=== PATIENT | female | born 1955 | race Caucasian/White ===

== ENCOUNTER 2019-03-25 17:06 | Inpatient (IN) | payer MEDICARE, OTHER ==
[~2019-03-25] VITALS: Ht 160 cm; Wt 83.9 kg
[~2019-03-25 17:06] MED LIST: ADV25050 INH; BENA10TA4 PO; BENZ-5 PO; BUPR-165 PO; CARV6.2579 PO; DOCU-144 PO; ISOS10TA2 PO; METF500T9 PO; MODA200T35 PO; NICO-544 TRANSDERM; OXYB10TA6 PO; PARO-2 PO; PHEN-716 PO; POLY17PO6 PO; TIOT18CA INH; TRAM50TA2 PO
[2019-03-25] MEDS ORDERED: ALBUTEROL 0.083% (NEB) 2.5 MG/3 ML AMP NEB STA (17:34)
[2019-03-25] MEDS ORDERED: IPRATROPIUM (NEB) 0.5 MG/2.5 ML AMP NEB STA (17:34)
[2019-03-25] MEDS ORDERED: DEXAMETHASONE 10 MG/ML 1 ML INJ IM STA (17:34)
[2019-03-25] MEDS ORDERED: SOD CHLORIDE 0.9% 1,000 ML IV STA (17:42)
[2019-03-25] MEDS ORDERED: METHYLPREDNISOLONE 125 MG INJ IV STA (17:42)
[2019-03-25] MEDS ORDERED: METHYLPREDNISOLONE 125 MG INJ ONE (17:47)
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
[2019-03-25] MEDS ORDERED: IPRATROPIUM (NEB) 0.5 MG/2.5 ML AMP ONE ×2 (18:04→19:21)
[2019-03-25] MEDS ORDERED: ALBUTEROL 0.5% (NEB) 2.5 MG/0.5 ML AMP ONE ×2 (18:05→19:21)
[2019-03-25] MEDS ORDERED: ALBUTEROL 0.083% (NEB) 2.5 MG/3 ML AMP INH STA (19:18)
[2019-03-25] MEDS ORDERED: IPRATROPIUM (NEB) 0.5 MG/2.5 ML AMP INH STA (19:18)
[2019-03-25] MEDS ORDERED: AZITHROMYCIN 500MG/NS (PMX) 250 ML IV STA (19:44)
[2019-03-25] MEDS ORDERED: CEFTRIAXONE 1 GM/50 ML (PMX) 50 ML IVPB STA (19:44)
[2019-03-25] MEDS ORDERED: CEFTRIAXONE 1 GM/50 ML (PMX) 50 ML IVPB ONE (19:59)
[2019-03-25] MEDS ORDERED: ACETAMINOPHEN 325 MG TAB PO PRN ×2 (20:00→20:30)
[2019-03-25] MEDS ORDERED: ONDANSETRON 4 MG INJ IV PRN ×2 (20:00→20:30)
[2019-03-25] MEDS ORDERED: AZITHROMYCIN 500MG/NS (PMX) 250 ML ONE (20:27)
[2019-03-25] MEDS ORDERED: NACL 0.9% 3 ML SYG IV SCH (20:30)
[2019-03-25] MEDS ORDERED: DOCUSATE SODIUM 100 MG CAP PO PRN (20:30)
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
[2019-03-25] MEDS ORDERED: FAMOTIDINE 20 MG TAB PO SCH (21:00)
[2019-03-25 21:40] VITALS: BP 148/72; PULSE 97; RESP 16
[2019-03-25] MEDS: ALBUTEROL/IPRATROPIUM (NEB) 3 ML AMP HHN SCH (21:52)
[2019-03-25] MEDS: METHYLPREDNISOLONE 40 MG INJ IV SCH (22:08)
[2019-03-25 22:10] VITALS: Ht 160 cm; Wt 83.9 kg
[2019-03-25] MEDS ORDERED: TEMA15CA PO (23:02)
[2019-03-25] MEDS ORDERED: GABA300C PO (23:05)
[2019-03-25] MEDS ORDERED: ALBUTEROL 0.083% (NEB) 2.5 MG/3 ML AMP HHN PRN (23:30)
[2019-03-25] MEDS ORDERED: GLUCOSE GEL 15 GRAM TUBE BUCCAL PRN (23:30)
[2019-03-25] MEDS ORDERED: NON-FORMULARY/PATIENT OWN MED (Temazepam* 15 MG) PO PRN (23:30)
[2019-03-25] MEDS ORDERED: DEXTROSE 50% 50 ML SYRINGE IV PRN ×2 (23:30)
[2019-03-25] MEDS ORDERED: GLUCAGON 1 MG INJ IM PRN (23:30)
[2019-03-25] MEDS ORDERED: GLUCOSE GEL 15 GRAM TUBE PO PRN ×2 (23:30)
[2019-03-26] MEDS: ZOLPIDEM 5 MG TAB PO PRN (00:25)
[2019-03-26] MEDS ORDERED: CARI350T29 PO (00:50)
[2019-03-26] MEDS ORDERED: BACL10TA PO (00:50)
[2019-03-26] MEDS ORDERED: OXYC40TA26 PO (00:50)
[2019-03-26] MEDS: ALBUTEROL/IPRATROPIUM (NEB) 3 ML AMP HHN SCH ×6 (01:05→19:49)
[2019-03-26] MEDS: ACCU-CHEK XX SCH (01:49)
[2019-03-26 02:29] VITALS: BP 129/78; PULSE 77; RESP 18
[2019-03-26] MEDS ORDERED: POTASSIUM CHLORIDE (SR) 20 MEQ TAB PO ONE (04:23)
[2019-03-26] MEDS ORDERED: PHENAZOPYRIDINE 100 MG TAB PO PRN (04:30)
[2019-03-26] MEDS: oxyCODONE (CR) 40 MG TAB [oxyCONTIN] PO SCH ×2 (05:45→08:30)
[2019-03-26] MEDS: METHYLPREDNISOLONE 40 MG INJ IV SCH ×3 (05:45→21:39)
[2019-03-26] MEDS: LEVOFLOXACIN 750 MG TABLET PO SCH (05:46)
[2019-03-26] MEDS: PANTOPRAZOLE (EC) 40 MG TAB PO SCH (05:46)
[2019-03-26 08:16] VITALS: BP 143/68; PULSE 77; RESP 18
[2019-03-26] MEDS: BACLOFEN 10 MG TAB PO SCH (08:29)
[2019-03-26] MEDS: OXYBUTYNIN (XL) 5 MG TAB PO SCH (08:29)
[2019-03-26] MEDS: GABAPENTIN 300 MG CAP PO SCH ×3 (08:29→21:39)
[2019-03-26] MEDS: POLYETHYLENE GLYCOL 17 GM PACKET PO SCH (08:29)
[2019-03-26] MEDS: DOCUSATE SODIUM 100 MG CAP PO SCH ×3 (08:30→21:39)
[2019-03-26] MEDS: CARISOPRODOL 350 MG TAB PO SCH ×2 (08:30→21:39)
[2019-03-26] MEDS: BUPROPION (SR) 150 MG TAB PO SCH ×2 (08:30→21:39)
[2019-03-26] MEDS: ISOSORBIDE DINITRATE 10 MG TAB PO SCH ×4 (08:31→21:39)
[2019-03-26] MEDS: NICOTINE (14 MG/24 HR) PATCH TRANSDERM SCH ×2 (08:32→08:49)
[2019-03-26] MEDS: ENOXAPARIN 40 MG/0.4 ML SYG SC SCH (08:35)
[2019-03-26] MEDS: INSULIN ASPART [NOVOLOG] 3 ML PEN SC SCH ×4 (08:48→21:00)
[2019-03-26] MEDS ORDERED: NON-FORMULARY/PATIENT OWN MED (Salmeterol Xinaf/Fluticasone* (Advair*) 1 INH) INH SCH (09:00)
--- NOTE | 2019-03-26 12:27 | PN ---
Date/Time of Note Date/Time of Note DATE: 03/26/19 TIME: 12:26 Assessment/Plan VTE Prophylaxis Risk score (from Nsg)>0 risk: 3 SCD applied (from Nsg): Yes Pharmacological prophylaxis: LMWH Lines/Catheters IV Catheter Type (from Nrsg): Saline Lock Assessment/Plan Hospital Course SUBJECTIVE: She still with wheezing. Having mild shortness of breath. On 3 L oxygen via nasal cannula. OBJECTIVE: Vital signs-see below PHYSICAL EXAM: Constitutional: Adequately built,not in acute distress. HEENT: Head atraumatic and normocephalic. Eyes: Extraocular muscles intact. Anicteric sclerae. Pupils equal bilaterally, reactive to light. NECK: Supple without lymph node. CHEST: Expiratory wheezing bilaterally. HEART: S1, S2. Regular rate and rhythm. ABDOMEN: Soft/non tender with no rebound tenderness. Bowel sounds were present. EXTREMITIES: No cyanosis, clubbing or edema. NEUROLOGIC: Alert and oriented x3. No focal deficit. No sensory deficit. PSYCHOSOCIAL: No signs of depression. INTEGUMENTARY: No open wounds. ASSESSMENT AND PLAN:64 yo w/copd,current every day smoker,dm neuropathy,anxiety, chronic back pain, here w/cough/sob... COPD exacerbation -Continue [id number] Rosalind, Brovana nebulization -Increase Solu-Medrol to 40 mg q. 8 -Supplemental oxygen Tracheobronchitis -Continue Levaquin. Add cough medications DM2 -With IV steroids, will start patient on NPH to be linked with steroid dose. -Continue basal/bolus regimen. Anxiety disorders -Continue home medications Overactive bladder -Continue home medications Tobacco abuse -Counseled on cessation. Provide nicotine patch Chronic Back pain -pain control Obesity with a BMI 32.8 -Weight reduction advised DVT prophylaxis: Lovenox Disposition: Continue current management. Await for clinical improvement. Assess for home oxygen requirement. Patient was seen in collaboration with Dr. Seo. Result Diagram: 03/25/19 1800 03/25/19 1800 Results 24hrs Laboratory Tests Test 03/25/19 18:00 03/25/19 20:14 03/26/19 04:53 03/26/19 08:21 White Blood Count 10.4 Red Blood Count 4.79 Hemoglobin 15.3 Hematocrit 44.9 Mean Corpuscular 93.7 Volume Mean Corpuscular 31.9 Hemoglobin Mean Corpuscular 34.4 Hemoglobin Concent Red Cell 12.2 Distribution Width Platelet Count 263 # Mean Platelet Volume 9.1 Neutrophils % 67.4 Lymphocytes % 21.1 Monocytes % 8.9 Eosinophils % 0.5 Basophils % 0.6 Nucleated Red Blood 0.0 Cells % Neutrophils # 7.0 Lymphocytes # 2.2 Monocytes # 0.9 Eosinophils # 0.1 Basophils # 0.1 Nucleated Red Blood 0.0 Cells # Sodium Level 140 Potassium Level 3.4 L Chloride Level 100 Carbon Dioxide Level 30 Anion Gap 10 Blood Urea Nitrogen 18 Creatinine 0.87 Est Glomerular > 60 Filtrat Rate mL/min Glucose Level 156 Calcium Level 9.8 Total Bilirubin 0.4 Direct Bilirubin 0.00 Indirect Bilirubin 0.4 Aspartate Amino 28 Transf (AST/SGOT) Alanine 25 Aminotransferase (AL T/SGPT) Alkaline Phosphatase 86 Troponin I < 0.012 Total Protein 8.0 Albumin 4.4 Globulin 3.60 H Albumin/Globulin 1.22 Ratio POC Venous Lactate 1.3 Hemoglobin A1c 5.4 Triglycerides Level 62 Cholesterol Level 141 LDL Cholesterol, 86 Calculated HDL Cholesterol 43 Cholesterol/HDL 3.2 Ratio Thyroid Stimulating 0.119 L Hormone (TSH) Free Thyroxine Index 3.51 Thyroxine (T4) 8.6 Triiodothyronine 40.8 H (T3) Uptake Bedside Glucose 199 Exam/Review of Systems Exam Vitals Vital Signs Date Temp Pulse Resp B/P (MAP) Pulse Ox O2 O2 Flow FiO2 Time Delivery Rate 03/26/19 78 20 95 Nasal 3.0 11:59 Cannula 03/26/19 98.3 143/68 08:16 (93) 03/25/19 21 18:07 Results Results 24hrs Laboratory Tests Test 03/25/19 18:00 03/25/19 20:14 03/26/19 04:53 03/26/19 08:21 White Blood Count 10.4 Red Blood Count 4.79 Hemoglobin 15.3 Hematocrit 44.9 Mean Corpuscular 93.7 Volume Mean Corpuscular 31.9 Hemoglobin Mean Corpuscular 34.4 Hemoglobin Concent Red Cell 12.2 Distribution Width Platelet Count 263 # Mean Platelet Volume 9.1 Neutrophils % 67.4 Lymphocytes % 21.1 Monocytes % 8.9 Eosinophils % 0.5 Basophils % 0.6 Nucleated Red Blood 0.0 Cells % Neutrophils # 7.0 Lymphocytes # 2.2 Monocytes # 0.9 Eosinophils # 0.1 Basophils # 0.1 Nucleated Red Blood 0.0 Cells # Sodium Level 140 Potassium Level 3.4 L Chloride Level 100 Carbon Dioxide Level 30 Anion Gap 10 Blood Urea Nitrogen 18 Creatinine 0.87 Est Glomerular > 60 Filtrat Rate mL/min Glucose Level 156 Calcium Level 9.8 Total Bilirubin 0.4 Direct Bilirubin 0.00 Indirect Bilirubin 0.4 Aspartate Amino 28 Transf (AST/SGOT) Alanine 25 Aminotransferase (AL T/SGPT) Alkaline Phosphatase 86 Troponin I < 0.012 Total Protein 8.0 Albumin 4.4 Globulin 3.60 H Albumin/Globulin 1.22 Ratio POC Venous Lactate 1.3 Hemoglobin A1c 5.4 Triglycerides Level 62 Cholesterol Level 141 LDL Cholesterol, 86 Calculated HDL Cholesterol 43 Cholesterol/HDL 3.2 Ratio Thyroid Stimulating 0.119 L Hormone (TSH) Free Thyroxine Index 3.51 Thyroxine (T4) 8.6 Triiodothyronine 40.8 H (T3) Uptake Bedside Glucose 199 Medications Medication Current Medications Ondansetron HCl (Zofran Inj) 4 mg BRIDGE ORDER PRN IV NAUSEA/VOMITING; Start 03/25/19 at 20:00; Stop 03/26/19 at 19:59 Acetaminophen (Tylenol Tab) 650 mg ER BRIDGE PRN PO .MILD PAIN 1-3 OR TEMP; Start 03/25/19 at 20:00; Stop 03/26/19 at 19:59 IV Flush (NS 3 ml) 3 ml PER PROTOCOL IV ; Start 03/25/19 at 20:30 Ondansetron HCl (Zofran Inj) 4 mg Q6H PRN IV NAUSEA/VOMITING; Start 03/25/19 at 20:30 Acetaminophen (Tylenol Tab) 650 mg Q6H PRN PO .PAIN 1-3 OR TEMP Last administered on 03/26/19at 00:25; Admin Dose 650 MG; Start 03/25/19 at 20:30 Docusate Sodium (Colace) 100 mg Q12H PRN PO .CONSTIPATION; Start 03/25/19 at 20:30 Bisacodyl (Dulcolax) 5 mg DAILY PRN PO .CONSTIPATION; Start 03/25/19 at 20:30 Enoxaparin Sodium (Lovenox) 40 mg DAILY SC Last administered on 03/26/19at 08:35; Admin Dose 40 MG; Start 03/26/19 at 09:00 Albuterol/ Ipratropium (Duoneb) 3 ml Q4H RESP THERAPY HHN Last administered on 03/26/19at 11:58; Admin Dose 3 ML; Start 03/25/19 at 21:00 Methylprednisolone Sodium Succinate (Solu-Medrol) 30 mg Q8 IV Last administered on 03/26/19at 05:45; Admin Dose 30 MG; Start 03/25/19 at 22:00 Levofloxacin (Levaquin) 750 mg DAILY@06 PO Last administered on 03/26/19at 05:46; Admin Dose 750 MG; Start 03/26/19 at 06:00; Stop 03/31/19 at 05:59 Gabapentin (Neurontin) 300 mg TID PO Last administered on 03/26/19at 08:29; Admin Dose 300 MG; Start 03/26/19 at 09:00 Nicotine (Nicoderm 14 Mg/ 24hr) 1 patch DAILY TRANSDERM Last administered on 03/26/19at 08:49; Admin Dose 1 PATCH; Start 03/26/19 at 09:00 Albuterol (Proventil 0.083% (Neb)) 2.5 mg Q2H RESP THERAPY PRN HHN SHORTNESS OF BREATH; Start 03/25/19 at 23:30 Diagnostic Test (Pha) (Accu-Chek) 1 ea 02 XX ; Start 03/26/19 at 02:00 Insulin Aspart (Novolog Insulin Pen) NOVOLOG *MILD* ALGORITHM WITH MEALS BEDTIME SC Last administered on 03/26/19at 08:48; Admin Dose 2 UNIT; Start 03/26/19 at 08:00 Miscellaneous Information 1 ea NOTE XX ; Start 03/25/19 at 23:30 Glucose (Glutose) 15 gm Q15M PRN PO DECREASED GLUCOSE; Start 03/25/19 at 23:30 Glucose (Glutose) 22.5 gm Q15M PRN PO DECREASED GLUCOSE; Start 03/25/19 at 23:30 Dextrose (D50w Syringe) 25 ml Q15M PRN IV DECREASED GLUCOSE; Start 03/25/19 at 23:30 Dextrose (D50w Syringe) 50 ml Q15M PRN IV DECREASED GLUCOSE; Start 03/25/19 at 23:30 Glucagon (Glucagen) 1 mg Q15M PRN IM DECREASED GLUCOSE; Start 03/25/19 at 23:30 Glucose (Glutose) 15 gm Q15M PRN BUCCAL DECREASED GLUCOSE; Start 03/25/19 at 23:30 Zolpidem Tartrate (Ambien) 5 mg HS PRN PO INSOMNIA Last administered on 03/26/19 00:25; Admin Dose 5 MG; Start 03/25/19 at 23:30 Baclofen (Lioresal) 10 mg DAILY PO Last administered on 03/26/19 08:29; Admin Dose 10 MG; Start 03/26/19 at 09:00 Bupropion HCl (Wellbutrin Sr) 150 mg BID PO Last administered on 03/26/19 08:30; Admin Dose 150 MG; Start 03/26/19 at 09:00 Carisoprodol (Soma) 350 mg Q12 PO Last administered on 03/26/19 08:30; Admin Dose 350 MG; Start 03/26/19 at 09:00 Docusate Sodium (Colace) 100 mg TID PO Last administered on 03/26/19 08:30; Admin Dose 100 MG; Start 03/26/19 at 09:00 Isosorbide Dinitrate (Isordil) 10 mg TID PO Last administered on 03/26/19 08:31; Admin Dose 10 MG; Start 03/26/19 at 09:00 Oxybutynin Chloride (Ditropan Xl) 10 mg DAILY PO Last administered on 03/26/19 08:29; Admin Dose 10 MG; Start 03/26/19 at 09:00 Oxycodone HCl (Oxycontin) 40 mg Q8 PO Last administered on 03/26/19 08:30; Admin Dose 40 MG; Start 03/26/19 at 06:00 Phenazopyridine HCl (Pyridium) 100 mg TID PRN PO dysuria; Start 03/26/19 at 04:30 Polyethylene Glycol (Miralax) 17 gm DAILY PO Last administered on 03/26/19 08:29; Admin Dose 17 GM; Start 03/26/19 at 09:00 Tramadol HCl (Ultram) 100 mg Q6H PRN PO PAIN LEVEL 1-3; Start 03/26/19 at 04:30 Pantoprazole (Protonix Tab) 40 mg DAILY@06 PO Last administered on 03/26/19 05:46; Admin Dose 40 MG; Start 03/26/19 at 06:00 Arformoterol Tartrate (Brovana (Neb)) 2 ml BID RESP THERAPY INH ; Start 03/26/19 at 20:00 Budesonide (Pulmicort (Neb)) 0.5 mg BID RESP THERAPY INH ; Start 03/26/19 at 20:00 MAC MAY NP Mar 26, 2019 12:27
[2019-03-26] MEDS ORDERED: ENOXAPARIN 40 MG/0.4 ML SYG SC SCH (12:30)
[2019-03-26 12:43] VITALS: BP 130/63; PULSE 94; RESP 18
[2019-03-26] MEDS: morphine 2 MG INJ IV PRN (13:04)
[2019-03-26 15:23] VITALS: BP 129/60; PULSE 84; RESP 18
[2019-03-26] MEDS: TIOTROPIUM 18 MCG CAPSULE INHA DEV INH SCH (16:11)
[2019-03-26] MEDS: NPH, HUMAN INSULIN ISOPHANE 3ML VIAL SC SCH ×2 (16:26→21:44)
[2019-03-26] MEDS: ARFORMOTEROL TARTRATE 15MCG/2 ML AMP INH SCH (19:49)
[2019-03-26] MEDS: BUDESONIDE (NEB) 0.5MG/2ML AMP INH SCH (19:49)
[2019-03-26 20:04] VITALS: BP 134/63; PULSE 88; RESP 18
[2019-03-27] MEDS: ALBUTEROL/IPRATROPIUM (NEB) 3 ML AMP HHN SCH ×6 (00:42→20:26)
[2019-03-27 02:00] VITALS: BP 131/64; PULSE 84; RESP 16
[2019-03-27] MEDS: ACCU-CHEK XX SCH (02:00)
[2019-03-27] MEDS: GUAIFENESIN/DM 5ML CUP PO PRN ×3 (03:11→17:53)
[2019-03-27] MEDS: traMADol 50 MG TAB PO PRN ×2 (03:12→23:50)
[2019-03-27] MEDS: METHYLPREDNISOLONE 40 MG INJ IV SCH ×3 (05:49→21:10)
[2019-03-27] MEDS: NPH, HUMAN INSULIN ISOPHANE 3ML VIAL SC SCH ×3 (05:52→21:12)
[2019-03-27] MEDS: PANTOPRAZOLE (EC) 40 MG TAB PO SCH (05:52)
[2019-03-27] MEDS: LEVOFLOXACIN 750 MG TABLET PO SCH (05:52)
[2019-03-27] MEDS: ARFORMOTEROL TARTRATE 15MCG/2 ML AMP INH SCH ×2 (07:47→20:26)
[2019-03-27 07:53] VITALS: BP 142/66; PULSE 67; RESP 20
[2019-03-27] MEDS: BUDESONIDE (NEB) 0.5MG/2ML AMP INH SCH ×2 (07:55→20:26)
[2019-03-27] MEDS: INSULIN ASPART [NOVOLOG] 3 ML PEN SC SCH ×4 (08:00→21:00)
[2019-03-27] MEDS: GABAPENTIN 300 MG CAP PO SCH ×3 (09:50→21:01)
[2019-03-27] MEDS: OXYBUTYNIN (XL) 5 MG TAB PO SCH (09:51)
[2019-03-27] MEDS: BUPROPION (SR) 150 MG TAB PO SCH ×2 (09:51→21:02)
[2019-03-27] MEDS: TIOTROPIUM 18 MCG CAPSULE INHA DEV INH SCH (09:51)
[2019-03-27] MEDS: BACLOFEN 10 MG TAB PO SCH (09:51)
[2019-03-27] MEDS: POLYETHYLENE GLYCOL 17 GM PACKET PO SCH (09:51)
[2019-03-27] MEDS: CARISOPRODOL 350 MG TAB PO SCH ×2 (09:51→21:01)
[2019-03-27] MEDS: DOCUSATE SODIUM 100 MG CAP PO SCH ×3 (09:51→21:04)
[2019-03-27] MEDS: ISOSORBIDE DINITRATE 10 MG TAB PO SCH ×3 (09:52→21:02)
[2019-03-27] MEDS: NICOTINE (14 MG/24 HR) PATCH TRANSDERM SCH (09:53)
[2019-03-27] MEDS: ENOXAPARIN 40 MG/0.4 ML SYG SC SCH (09:56)
[2019-03-27] MEDS: morphine 2 MG INJ IV PRN ×2 (11:11→17:55)
--- NOTE | 2019-03-27 12:14 | PN ---
Date/Time of Note Date/Time of Note DATE: 03/27/19 TIME: 12:09 Assessment/Plan VTE Prophylaxis Risk score (from Nsg)>0 risk: 3 SCD applied (from Nsg): Yes Pharmacological prophylaxis: LMWH Lines/Catheters IV Catheter Type (from Nrsg): Saline Lock Assessment/Plan Hospital Course SUBJECTIVE: Today patient with worsening cough. She is also wheezing bilaterally. She also reports dysuria. No fevers or chills. OBJECTIVE: Vital signs-see below PHYSICAL EXAM: Constitutional: Adequately built,not in acute distress. HEENT: Head atraumatic and normocephalic. Eyes: Extraocular muscles intact. Anicteric sclerae. Pupils equal bilaterally, reactive to light. NECK: Supple without lymph node. CHEST: Expiratory wheezing bilaterally. HEART: S1, S2. Regular rate and rhythm. ABDOMEN: Soft/non tender with no rebound tenderness. Bowel sounds were present. EXTREMITIES: No cyanosis, clubbing or edema. NEUROLOGIC: Alert and oriented x3. No focal deficit. No sensory deficit. PSYCHOSOCIAL: No signs of depression. INTEGUMENTARY: No open wounds. ASSESSMENT AND PLAN:64 yo w/copd,current every day smoker,dm neuropathy,anxiety, chronic back pain, here w/cough/sob... COPD exacerbation -Continue [id number] Rosalind, Brovana nebulization, IV steroids -Supplemental oxygen Acute tracheobronchitis -Patient with worsening cough and symptoms. -Change antibiotic to Augmentin plus Zithromax. DC Levaquin. -Cough medications. DM2 -Stable glycemic trends. Continue NPH linked with steroid dose. -Continue basal/bolus regimen. HTN -Stable -on Isordil Anxiety disorders -Continue home medications -Add PRN Xanax and trazodone at nighttime as she could not sleep last night. Overactive bladder -Pyridium for dysuria. Obtain UA and culture to rule out UTI. -On Ditropan Tobacco abuse -Counseled on cessation. Provide nicotine patch Chronic Back pain -pain control Obesity with a BMI 32.8 -Weight reduction advised DVT prophylaxis: Lovenox Disposition: Continue current management. Await for clinical improvement. Assess for home oxygen requirement. Patient was seen in collaboration with Dr. Seo. Result Diagram: 03/25/19 1800 03/25/19 1800 Results 24hrs Laboratory Tests Test 03/26/19 12:24 03/26/19 18:32 03/26/19 21:41 03/27/19 08:12 Bedside Glucose 294 H 206 151 139 Exam/Review of Systems Exam Vitals Vital Signs Date Temp Pulse Resp B/P (MAP) Pulse Ox O2 O2 Flow FiO2 Time Delivery Rate 03/27/19 70 18 93 Nasal 2.0 10:15 Cannula 03/27/19 98.2 142/66 07:53 (91) 03/27/19 07:48 Intake and Output 03/26/19 03/26/19 03/27/19 1515:00 23:00 07:00 IntakeIntake Total 400 ml 1260 ml 120 ml OutputOutput Total 350 ml 700 ml 1000 ml BalanceBalance 50 ml 560 ml -880 ml Results Results 24hrs Laboratory Tests Test 03/26/19 12:24 03/26/19 18:32 03/26/19 21:41 03/27/19 08:12 Bedside Glucose 294 H 206 151 139 Medications Medication Current Medications IV Flush (NS 3 ml) 3 ml PER PROTOCOL IV ; Start 03/25/19 at 20:30 Ondansetron HCl (Zofran Inj) 4 mg Q6H PRN IV NAUSEA/VOMITING; Start 03/25/19 at 20:30 Acetaminophen (Tylenol Tab) 650 mg Q6H PRN PO .PAIN 1-3 OR TEMP Last administered on 03/26/19at 00:25; Admin Dose 650 MG; Start 03/25/19 at 20:30 Docusate Sodium (Colace) 100 mg Q12H PRN PO .CONSTIPATION; Start 03/25/19 at 20:30 Bisacodyl (Dulcolax) 5 mg DAILY PRN PO .CONSTIPATION; Start 03/25/19 at 20:30 Enoxaparin Sodium (Lovenox) 40 mg DAILY SC Last administered on 03/27/19at 09:56; Admin Dose 40 MG; Start 03/26/19 at 09:00 Albuterol/ Ipratropium (Duoneb) 3 ml Q4H RESP THERAPY HHN Last administered on 03/27/19at 10:08; Admin Dose 3 ML; Start 03/25/19 at 21:00 Levofloxacin (Levaquin) 750 mg DAILY@06 PO Last administered on 03/27/19at 05:52; Admin Dose 750 MG; Start 03/26/19 at 06:00; Stop 03/31/19 at 05:59 Gabapentin (Neurontin) 300 mg TID PO Last administered on 03/27/19at 09:50; Admin Dose 300 MG; Start 03/26/19 at 09:00 Nicotine (Nicoderm 14 Mg/ 24hr) 1 patch DAILY TRANSDERM Last administered on 03/27/19at 09:53; Admin Dose 1 PATCH; Start 03/26/19 at 09:00 Albuterol (Proventil 0.083% (Neb)) 2.5 mg Q2H RESP THERAPY PRN HHN SHORTNESS OF BREATH; Start 03/25/19 at 23:30 Diagnostic Test (Pha) (Accu-Chek) 1 ea 02 XX ; Start 03/26/19 at 02:00 Insulin Aspart (Novolog Insulin Pen) NOVOLOG *MILD* ALGORITHM WITH MEALS BEDTIME SC Last administered on 03/26/19at 18:46; Admin Dose 2 UNIT; Start 03/26/19 at 08:00 Miscellaneous Information 1 ea NOTE XX ; Start 03/25/19 at 23:30 Glucose (Glutose) 15 gm Q15M PRN PO DECREASED GLUCOSE; Start 03/25/19 at 23:30 Glucose (Glutose) 22.5 gm Q15M PRN PO DECREASED GLUCOSE; Start 03/25/19 at 23:30 Dextrose (D50w Syringe) 25 ml Q15M PRN IV DECREASED GLUCOSE; Start 03/25/19 at 23:30 Dextrose (D50w Syringe) 50 ml Q15M PRN IV DECREASED GLUCOSE; Start 03/25/19 at 23:30 Glucagon (Glucagen) 1 mg Q15M PRN IM DECREASED GLUCOSE; Start 03/25/19 at 23:30 Glucose (Glutose) 15 gm Q15M PRN BUCCAL DECREASED GLUCOSE; Start 03/25/19 at 23:30 Zolpidem Tartrate (Ambien) 5 mg HS PRN PO INSOMNIA Last administered on 03/26/19at 00:25; Admin Dose 5 MG; Start 03/25/19 at 23:30 Baclofen (Lioresal) 10 mg DAILY PO Last administered on 03/27/19at 09:51; Admin Dose 10 MG; Start 03/26/19 at 09:00 Bupropion HCl (Wellbutrin Sr) 150 mg BID PO Last administered on 03/27/19 09:51; Admin Dose 150 MG; Start 03/26/19 at 09:00 Carisoprodol (Soma) 350 mg Q12 PO Last administered on 03/27/19 09:51; Admin Dose 350 MG; Start 03/26/19 at 09:00 Docusate Sodium (Colace) 100 mg TID PO Last administered on 03/27/19 09:51; Admin Dose 100 MG; Start 03/26/19 at 09:00 Isosorbide Dinitrate (Isordil) 10 mg TID PO Last administered on 03/27/19 09:52; Admin Dose 10 MG; Start 03/26/19 at 09:00 Oxybutynin Chloride (Ditropan Xl) 10 mg DAILY PO Last administered on 03/27/19 09:51; Admin Dose 10 MG; Start 03/26/19 at 09:00 Phenazopyridine HCl (Pyridium) 100 mg TID PRN PO dysuria; Start 03/26/19 at 04:30 Polyethylene Glycol (Miralax) 17 gm DAILY PO Last administered on 03/27/19 09:51; Admin Dose 17 GM; Start 03/26/19 at 09:00 Tramadol HCl (Ultram) 100 mg Q6H PRN PO PAIN LEVEL 1-3 Last administered on 03/27/19 03:12; Admin Dose 100 MG; Start 03/26/19 at 04:30 Pantoprazole (Protonix Tab) 40 mg DAILY@06 PO Last administered on 03/27/19 05:52; Admin Dose 40 MG; Start 03/26/19 at 06:00 Arformoterol Tartrate (Brovana (Neb)) 2 ml BID RESP THERAPY INH Last adm inistered on 03/26/19 19:49; Admin Dose 2 ML; Start 03/26/19 at 20:00 Budesonide (Pulmicort (Neb)) 0.5 mg BID RESP THERAPY INH Last administered on 03/27/19 07:55; Admin Dose 0.5 MG; Start 03/26/19 at 20:00 Methylprednisolone Sodium Succinate (Solu-Medrol) 40 mg Q8 IV Last administered on 03/27/19 05:49; Admin Dose 40 MG; Start 03/26/19 at 14:00 Morphine Sulfate (morphine) 2 mg Q4H PRN IV SEVERE PAIN LEVEL 7-10 Last administered on 03/27/19 11:11; Admin Dose 2 MG; Start 03/26/19 at 12:30 Tiotropium [place] (Spiriva) 1 inh DAILY INH Last administered on 03/27/19 09:51; Admin Dose 1 INH; Start 03/26/19 at 13:30 Insulin Human NPH (Humulin N) 10 unit Q8 SC Last administered on 03/27/19 05:52; Admin Dose 10 UNIT; Start 03/26/19 at 14:00 Guaifenesin/ Dextromethorphan (Robitussin Dm Liquid Cup) 10 ml Q4H PRN PO cough Last administered on 03/27/19 03:11; Admin Dose 10 ML; Start 03/26/19 at 12:30 MAC MAY V. [employer] ENGINE[employer] Mar 27, 2019 12:14
[2019-03-27] MEDS: ALPRAZOLAM 0.25 MG TAB PO PRN (14:17)
[2019-03-27] MEDS: PHENAZOPYRIDINE 100 MG TAB PO SCH ×2 (14:17→21:03)
[2019-03-27 14:30] VITALS: BP 129/64; PULSE 81; RESP 19
[2019-03-27] MEDS: AMOXICILLIN/CLAV 875 MG TAB PO SCH ×2 (14:43→21:03)
[2019-03-27] MEDS: GUAIFENESIN/DM (SR) TAB PO SCH ×2 (14:44→21:03)
[2019-03-27] MEDS: AZITHROMYCIN 500 MG TAB PO SCH (14:44)
[2019-03-27 19:33] VITALS: BP 103/78; PULSE 80; RESP 18
[2019-03-27] MEDS: traZODone 50 MG TAB PO SCH (21:04)
[2019-03-27] MEDS: ZOLPIDEM 5 MG TAB PO PRN (23:50)
[2019-03-28] MEDS: ALBUTEROL/IPRATROPIUM (NEB) 3 ML AMP HHN SCH ×6 (00:22→20:01)
[2019-03-28 01:27] VITALS: BP 129/63; PULSE 71; RESP 18
[2019-03-28] MEDS: ACCU-CHEK XX SCH (02:00)
[2019-03-28] MEDS: METHYLPREDNISOLONE 40 MG INJ IV SCH ×3 (06:33→22:10)
[2019-03-28] MEDS: traMADol 50 MG TAB PO PRN (06:34)
[2019-03-28] MEDS: PANTOPRAZOLE (EC) 40 MG TAB PO SCH (06:34)
[2019-03-28] MEDS: NPH, HUMAN INSULIN ISOPHANE 3ML VIAL SC SCH ×3 (06:40→22:20)
[2019-03-28 07:24] VITALS: BP 116/56; PULSE 53; RESP 20
[2019-03-28] MEDS: INSULIN ASPART [NOVOLOG] 3 ML PEN SC SCH ×4 (08:00→20:20)
[2019-03-28] MEDS: BUDESONIDE (NEB) 0.5MG/2ML AMP INH SCH ×2 (08:38→20:01)
[2019-03-28] MEDS: ARFORMOTEROL TARTRATE 15MCG/2 ML AMP INH SCH ×2 (08:39→20:00)
[2019-03-28] MEDS: POLYETHYLENE GLYCOL 17 GM PACKET PO SCH (08:41)
[2019-03-28] MEDS: BUPROPION (SR) 150 MG TAB PO SCH ×2 (08:43→20:21)
[2019-03-28] MEDS: PHENAZOPYRIDINE 100 MG TAB PO SCH ×3 (08:43→20:21)
[2019-03-28] MEDS: NICOTINE (14 MG/24 HR) PATCH TRANSDERM SCH (08:43)
[2019-03-28] MEDS: CARISOPRODOL 350 MG TAB PO SCH ×2 (08:43→20:21)
[2019-03-28] MEDS: AZITHROMYCIN 500 MG TAB PO SCH (08:43)
[2019-03-28] MEDS: DOCUSATE SODIUM 100 MG CAP PO SCH ×3 (08:43→20:21)
[2019-03-28] MEDS: GABAPENTIN 300 MG CAP PO SCH ×3 (08:43→20:23)
[2019-03-28] MEDS: ISOSORBIDE DINITRATE 10 MG TAB PO SCH ×3 (08:44→20:22)
[2019-03-28] MEDS: BACLOFEN 10 MG TAB PO SCH (08:44)
[2019-03-28] MEDS: TIOTROPIUM 18 MCG CAPSULE INHA DEV INH SCH (08:44)
[2019-03-28] MEDS: AMOXICILLIN/CLAV 875 MG TAB PO SCH ×2 (08:44→20:21)
[2019-03-28] MEDS: GUAIFENESIN/DM (SR) TAB PO SCH ×2 (08:44→20:21)
[2019-03-28] MEDS: OXYBUTYNIN (XL) 5 MG TAB PO SCH (08:44)
[2019-03-28] MEDS: ENOXAPARIN 40 MG/0.4 ML SYG SC SCH (08:50)
[2019-03-28] MEDS: morphine 2 MG INJ IV PRN ×3 (09:15→20:21)
[2019-03-28] MEDS: GUAIFENESIN/DM 5ML CUP PO PRN ×3 (09:15→20:19)
--- NOTE | 2019-03-28 09:48 | PN ---
Date/Time of Note Date/Time of Note DATE: 03/28/19 TIME: 09:46 Assessment/Plan VTE Prophylaxis Risk score (from Nsg)>0 risk: 4 SCD applied (from Nsg): Yes Pharmacological prophylaxis: LMWH Lines/Catheters IV Catheter Type (from Nrsg): Saline Lock Assessment/Plan Hospital Course SUBJECTIVE: Patient is doing well in terms of respiratory status today. She is with improved work of breathing and improved cough status. Patient reports constipation and her last bowel movement was 4 days ago. She is also with mild abdominal distention. OBJECTIVE: Vital signs-see below PHYSICAL EXAM: Constitutional: Adequately built,not in acute distress. HEENT: Head atraumatic and normocephalic. Eyes: Extraocular muscles intact. Anicteric sclerae. Pupils equal bilaterally, reactive to light. NECK: Supple without lymph node. CHEST: Expiratory wheezing bilaterally-improving. HEART: S1, S2. Regular rate and rhythm. ABDOMEN: Slightly distended, no tenderness. Bowel sounds were present. EXTREMITIES: No cyanosis, clubbing or edema. NEUROLOGIC: Alert and oriented x3. No focal deficit. No sensory deficit. PSYCHOSOCIAL: No signs of depression. INTEGUMENTARY: No open wounds. ASSESSMENT AND PLAN:64 yo w/copd,current every day smoker,dm neuropathy,anxiety, chronic back pain, here w/cough/sob... COPD exacerbation -Improving -Continue [id number] Rosalind, Brovana nebulization, IV steroids (start tapering in am) -Supplemental oxygen Acute tracheobronchitis -Improving on Augmentin plus Zithromax. -Cough medications. DM2 -Stable glycemic trends. Continue NPH linked with steroid dose. -Continue basal/bolus regimen. HTN -Stable -on Isordil Anxiety disorders -Continue home medications - PRN Xanax Overactive bladder -Pyridium PRN for dysuria. -On Ditropan Tobacco abuse -Counseled on cessation. Provide nicotine patch Chronic Back pain -pain control Obesity with a BMI 32.8 -Weight reduction advised Constipation -Fleet enema x1 -Stool softeners/laxatives DVT prophylaxis: Lovenox Disposition: Continue current management. Await for further clinical improvement. Arrange home oxygen. Anticipate discharge in 24 to 48 hours. Patient was seen in collaboration with . Result Diagram: 03/25/19 1800 03/25/19 1800 Results 24hrs Laboratory Tests Test 03/27/19 12:17 03/27/19 14:07 03/27/19 15:20 03/27/19 17:53 Bedside Glucose 140 154 152 Urine Color YELLOW Urine Clarity CLEAR Urine pH 7.0 Urine Specific 1.009 [place] Urine Ketones NEGATIVE Urine Nitrite NEGATIVE Urine Bilirubin NEGATIVE Urine NEGATIVE Urobilinogen Urine Leukocyte NEGATIVE Esterase Urine Hemoglobin NEGATIVE Urine Glucose NEGATIVE Urine Total NEGATIVE Protein Test 03/27/19 21:00 03/27/19 21:15 03/28/19 06:33 03/28/19 08:41 Bedside Glucose 143 148 120 Blood Gas Blood arterial Specimen Source Arterial Blood 03/27/2019 9:15:4 Date Drawn 8 PM Arterial Blood pH 7.410 (Temp corrected) Arterial Blood 50.0 H pCO2 (Temp correct) Arterial Blood 52.7 *L pO2 (Temp corrected) Arterial Blood 31.0 H HCO3 Arterial Blood 5.1 H Base Excess Arterial Blood 87.7 L Oxygen Saturation [place] Test ACCEPTAB Arterial Blood Right Radial Gas Puncture Site Arterial 0.8 Blood Carboxyhemo globin Arterial Blood 0.2 Methemoglobin Blood Gas A-a O2 37.2 H Differential Oxyhemoglobin 86.8 L Percent Blood Gas 37.0 Temperature Blood Gas ROOM AIR Modality FiO2 21.0 Blood Gas Pierre RAMSEY MD Critical Value Read Back Blood Gas RI Notified Whom Blood Gas 03/27/2019 9:27:3 Notified Time 7 PM Exam/Review of Systems Exam Vitals Vital Signs Date Temp Pulse Resp B/P (MAP) Pulse Ox O2 O2 Flow FiO2 Time Delivery Rate 03/28/19 74 20 94 Nasal 2.0 08:39 Cannula 03/28/19 97.4 116/56 07:24 (76) 03/27/19 21 07:48 Intake and Output 03/27/19 03/27/19 03/28/19 1515:00 23:00 07:00 IntakeIntake Total 240 ml 840 ml 360 ml OutputOutput Total 1200 ml 500 ml 1500 ml BalanceBalance -960 ml 340 ml -1140 ml Results Results 24hrs Laboratory Tests Test 03/27/19 12:17 03/27/19 14:07 03/27/19 15:20 03/27/19 17:53 Bedside Glucose 140 154 152 Urine Color YELLOW Urine Clarity CLEAR Urine pH 7.0 Urine Specific 1.009 [place] Urine Ketones NEGATIVE Urine Nitrite NEGATIVE Urine Bilirubin NEGATIVE Urine NEGATIVE Urobilinogen Urine Leukocyte NEGATIVE Esterase Urine Hemoglobin NEGATIVE Urine Glucose NEGATIVE Urine Total NEGATIVE Protein Test 03/27/19 21:00 03/27/19 21:15 03/28/19 06:33 03/28/19 08:41 Bedside Glucose 143 148 120 Blood Gas Blood arterial Specimen Source Arterial Blood 03/27/2019 9:15:4 Date Drawn 8 PM Arterial Blood pH 7.410 (Temp corrected) Arterial Blood 50.0 H pCO2 (Temp correct) Arterial Blood 52.7 *L pO2 (Temp corrected) Arterial Blood 31.0 H HCO3 Arterial Blood 5.1 H Base Excess Arterial Blood 87.7 L Oxygen Saturation [place] Test ACCEPTAB Arterial Blood Right Radial Gas Puncture Site Arterial 0.8 Blood Carboxyhemo globin Arterial Blood 0.2 Methemoglobin Blood Gas A-a O2 37.2 H Differential Oxyhemoglobin 86.8 L Percent Blood Gas 37.0 Temperature Blood Gas ROOM AIR Modality FiO2 21.0 Blood Gas Pierre RAMSEY MD Critical Value Read Back Blood Gas RAJ Notified Whom Blood Gas 03/27/2019 9:27:3 Notified Time 7 PM Medications Medication Current Medications IV Flush (NS 3 ml) 3 ml PER PROTOCOL IV ; Start 03/25/19 at 20:30 Ondansetron HCl (Zofran Inj) 4 mg Q6H PRN IV NAUSEA/VOMITING; Start 03/25/19 at 20:30 Acetaminophen (Tylenol Tab) 650 mg Q6H PRN PO .PAIN 1-3 OR TEMP Last administered on 03/26/19at 00:25; Admin Dose 650 MG; Start 03/25/19 at 20:30 Docusate Sodium (Colace) 100 mg Q12H PRN PO .CONSTIPATION; Start 03/25/19 at 20:30 Bisacodyl (Dulcolax) 5 mg DAILY PRN PO .CONSTIPATION; Start 03/25/19 at 20:30 Enoxaparin Sodium (Lovenox) 40 mg DAILY SC Last administered on 03/28/19at 08:50; Admin Dose 40 MG; Start 03/26/19 at 09:00 Albuterol/ Ipratropium (Duoneb) 3 ml Q4H RESP THERAPY HHN Last administered on 03/28/19at 08:38; Admin Dose 3 ML; Start 03/25/19 at 21:00 Gabapentin (Neurontin) 300 mg TID PO Last administered on 03/28/19 08:43; Admin Dose 300 MG; Start 03/26/19 at 09:00 Nicotine (Nicoderm 14 Mg/ 24hr) 1 patch DAILY TRANSDERM Last administered on 03/28/19 08:43; Admin Dose 1 PATCH; Start 03/26/19 at 09:00 Albuterol (Proventil 0.083% (Neb)) 2.5 mg Q2H RESP THERAPY PRN HHN SHORTNESS OF BREATH; Start 03/25/19 at 23:30 Diagnostic Test (Pha) (Accu-Chek) 1 ea 02 XX ; Start 03/26/19 at 02:00 Insulin Aspart (Novolog Insulin Pen) NOVOLOG *MILD* ALGORITHM WITH MEALS BEDTIME SC Last administered on 03/27/19 17:56; Admin Dose 1 UNIT; Start 03/26/19 at 08:00 Miscellaneous Information 1 ea NOTE XX ; Start 03/25/19 at 23:30 Glucose (Glutose) 15 gm Q15M PRN PO DECREASED GLUCOSE; Start 03/25/19 at 23:30 Glucose (Glutose) 22.5 gm Q15M PRN PO DECREASED GLUCOSE; Start 03/25/19 at 23:30 Dextrose (D50w Syringe) 25 ml Q15M PRN IV DECREASED GLUCOSE; Start 03/25/19 at 23:30 Dextrose (D50w Syringe) 50 ml Q15M PRN IV DECREASED GLUCOSE; Start 03/25/19 at 23:30 Glucagon (Glucagen) 1 mg Q15M PRN IM DECREASED GLUCOSE; Start 03/25/19 at 23:30 Glucose (Glutose) 15 gm Q15M PRN BUCCAL DECREASED GLUCOSE; Start 03/25/19 at 23:30 Zolpidem Tartrate (Ambien) 5 mg HS PRN PO INSOMNIA Last administered on 03/27/19 23:50; Admin Dose 5 MG; Start 03/25/19 at 23:30 Baclofen (Lioresal) 10 mg DAILY PO Last administered on 03/28/19 08:44; Admin Dose 10 MG; Start 03/26/19 at 09:00 Bupropion HCl (Wellbutrin Sr) 150 mg BID PO Last administered on 03/28/19 08:43; Admin Dose 150 MG; Start 03/26/19 at 09:00 Carisoprodol (Soma) 350 mg Q12 PO Last administered on 03/28/19 08:43; Admin Dose 350 MG; Start 03/26/19 at 09:00 Docusate Sodium (Colace) 100 mg TID PO Last administered on 03/28/19 08:43; Admin Dose 100 MG; Start 03/26/19 at 09:00 Isosorbide Dinitrate (Isordil) 10 mg TID PO Last administered on 03/28/19 08 :44; Admin Dose 10 MG; Start 03/26/19 at 09:00 Oxybutynin Chloride (Ditropan Xl) 10 mg DAILY PO Last administered on 03/28/19 08:44; Admin Dose 10 MG; Start 03/26/19 at 09:00 Polyethylene Glycol (Miralax) 17 gm DAILY PO Last administered on 03/28/19 08:41; Admin Dose 17 GM; Start 03/26/19 at 09:00 Tramadol HCl (Ultram) 100 mg Q6H PRN PO PAIN LEVEL 1-3 Last administered on 03/28/19 06:34; Admin Dose 100 MG; Start 03/26/19 at 04:30 Pantoprazole (Protonix Tab) 40 mg DAILY@06 PO Last administered on 03/28/19 06:34; Admin Dose 40 MG; Start 03/26/19 at 06:00 Arformoterol Tartrate (Brovana (Neb)) 2 ml BID RESP THERAPY INH Last administered on 03/27/19 20:26; Admin Dose 2 ML; Start 03/26/19 at 20:00 Budesonide (Pulmicort (Neb)) 0.5 mg BID RESP THERAPY INH Last administered on 03/28/19 08:38; Admin Dose 0.5 MG; Start 03/26/19 at 20:00 Methylprednisolone Sodium Succinate (Solu-Medrol) 40 mg Q8 IV Last administered on 03/28/19 06:33; Admin Dose 40 MG; Start 03/26/19 at 14:00 Morphine Sulfate (morphine) 2 mg Q4H PRN IV SEVERE PAIN LEVEL 7-10 Last administered on 03/28/19 09:15; Admin Dose 2 MG; Start 03/26/19 at 12:30 Tiotropium [place] (Spiriva) 1 inh DAILY INH Last administered on 03/28/19 08:44; Admin Dose 1 INH; Start 03/26/19 at 13:30 Insulin Human NPH (Humulin N) 10 unit Q8 SC Last administered on 03/28/19 06:40; Admin Dose 10 UNIT; Start 03/26/19 at 14:00 Guaifenesin/ Dextromethorphan (Robitussin Dm Liquid Cup) 10 ml Q4H PRN PO cough Last administered on 03/28/19 09:15; Admin Dose 10 ML; Start 03/26/19 at 12:30 Phenazopyridine HCl (Pyridium) 100 mg TID PO Last administered on 03/28/19 08:43; Admin Dose 100 MG; Start 03/27/19 at 13:00; Stop 03/29/19 at 09:01 Azithromycin (Zithromax) 500 mg DAILY PO Last administered on 03/28/19 08:43; Admin Dose 500 MG; Start 03/27/19 at 12:30; Stop 04/01/19 at 12:29 Guaifenesin/ Dextromethorphan (Mucinex Dm) 1 tab BID PO Last administered on 03/28/19 08:44; Admin Dose 1 TAB; Start 03/27/19 at 13:00 Alprazolam (Xanax) 0.25 mg BID PRN PO anxiety Last administered on 03/27/19 14:17; Admin Dose 0.25 MG; Start 03/27/19 at 12:30 Trazodone HCl (Desyrel) 50 mg HS PO Last administered on 03/27/19 21:04; Admin Dose 50 MG; Start 03/27/19 at 21:00 Amoxicillin/ Clavulanate Potassium (Augmentin) 875 mg BID PO Last administered on 03/28/19 08:44; Admin Dose 875 MG; Start 03/27/19 at 13:00 MAC MAY NP Mar 28, 2019 09:48
[2019-03-28] MEDS ORDERED: traMADol 50 MG TAB PO PRN (10:00)
[2019-03-28] MEDS ORDERED: NA PHOSPHATE/BIPHOS 133 ML ENEMA PR ONE (10:30)
[2019-03-28] MEDS: PSYLLIUM 28% PACKET PO SCH (11:47)
[2019-03-28 14:56] VITALS: BP 144/68; PULSE 78; RESP 20
[2019-03-28 19:25] VITALS: BP 157/72; PULSE 86; RESP 17
[2019-03-28] MEDS: traZODone 50 MG TAB PO SCH (20:22)
[2019-03-28] MEDS: SENNA TAB PO SCH (20:22)
[2019-03-28] MEDS: ZOLPIDEM 5 MG TAB PO PRN (22:10)
[2019-03-29] MEDS ORDERED: HYDROCODONE/APAP (5/325) TAB PO ONE
[2019-03-29] MEDS: ALBUTEROL/IPRATROPIUM (NEB) 3 ML AMP HHN SCH ×7 (00:32→20:23)
[2019-03-29 01:08] VITALS: BP 159/69; PULSE 67; RESP 18
[2019-03-29] MEDS: ACCU-CHEK XX SCH (02:00)
[2019-03-29] MEDS: METHYLPREDNISOLONE 40 MG INJ IV SCH ×2 (05:46→21:34)
[2019-03-29] MEDS: PANTOPRAZOLE (EC) 40 MG TAB PO SCH (05:47)
[2019-03-29] MEDS: NPH, HUMAN INSULIN ISOPHANE 3ML VIAL SC SCH ×2 (06:03→21:46)
[2019-03-29 07:40] VITALS: BP 138/63; PULSE 69; RESP 20
[2019-03-29] MEDS: ARFORMOTEROL TARTRATE 15MCG/2 ML AMP INH SCH ×2 (08:33→20:00)
[2019-03-29] MEDS: BUDESONIDE (NEB) 0.5MG/2ML AMP INH SCH ×2 (08:34→20:23)
[2019-03-29] MEDS: TIOTROPIUM 18 MCG CAPSULE INHA DEV INH SCH (09:04)
[2019-03-29] MEDS: PSYLLIUM 28% PACKET PO SCH ×2 (09:05→21:39)
[2019-03-29] MEDS: NICOTINE (14 MG/24 HR) PATCH TRANSDERM SCH (09:06)
[2019-03-29] MEDS: DOCUSATE SODIUM 100 MG CAP PO SCH ×2 (09:06→21:35)
[2019-03-29] MEDS: BACLOFEN 10 MG TAB PO SCH (09:07)
[2019-03-29] MEDS: AZITHROMYCIN 500 MG TAB PO SCH (09:07)
[2019-03-29] MEDS: SENNA TAB PO SCH ×2 (09:07→21:36)
[2019-03-29] MEDS: ISOSORBIDE DINITRATE 10 MG TAB PO SCH ×3 (09:07→21:36)
[2019-03-29] MEDS: BUPROPION (SR) 150 MG TAB PO SCH ×2 (09:07→21:36)
[2019-03-29] MEDS: AMOXICILLIN/CLAV 875 MG TAB PO SCH ×2 (09:07→21:36)
[2019-03-29] MEDS: PHENAZOPYRIDINE 100 MG TAB PO SCH (09:08)
[2019-03-29] MEDS: CARISOPRODOL 350 MG TAB PO SCH ×2 (09:08→21:34)
[2019-03-29] MEDS: GUAIFENESIN/DM (SR) TAB PO SCH ×2 (09:08→21:38)
[2019-03-29] MEDS: OXYBUTYNIN (XL) 5 MG TAB PO SCH (09:09)
[2019-03-29] MEDS: GABAPENTIN 300 MG CAP PO SCH ×3 (09:09→21:37)
[2019-03-29] MEDS: INSULIN ASPART [NOVOLOG] 3 ML PEN SC SCH ×4 (09:14→21:00)
[2019-03-29] MEDS: ENOXAPARIN 40 MG/0.4 ML SYG SC SCH (09:15)
[2019-03-29] MEDS: morphine 2 MG INJ IV PRN ×2 (11:14→20:08)
--- NOTE | 2019-03-29 11:52 | PN ---
Date/Time of Note Date/Time of Note DATE: 03/29/19 TIME: 11:49 Assessment/Plan VTE Prophylaxis Risk score (from Nsg)>0 risk: 2 SCD applied (from Ns): No SCD contraindicated: other Pharmacological prophylaxis: LMWH Lines/Catheters IV Catheter Type (from Nrs): Peripheral IV Urinary Cath still in place: No Assessment/Plan Hospital Course SUBJECTIVE: With improved respiratory status. Patient has not had a bowel movement after enema yesterday. OBJECTIVE: Vital signs-see below PHYSICAL EXAM: Constitutional: Adequately built,not in acute distress. HEENT: Head atraumatic and normocephalic. Eyes: Extraocular muscles intact. Anicteric sclerae. Pupils equal bilaterally, reactive to light. NECK: Supple without lymph node. CHEST: Expiratory wheezing bilaterally-improving. HEART: S1, S2. Regular rate and rhythm. ABDOMEN:+Chronic Hernia. Slightly distended, no tenderness. Bowel sounds were present. EXTREMITIES: No cyanosis, clubbing or edema. NEUROLOGIC: Alert and oriented x3. No focal deficit. No sensory deficit. PSYCHOSOCIAL: No signs of depression. INTEGUMENTARY: No open wounds. ASSESSMENT AND PLAN:64 yo w/copd,current every day smoker,dm neuropathy,anxiety, chronic back pain, here w/cough/sob... COPD exacerbation -Improving -Continue [id number] Rosalind, Brovana nebulization, IV steroids (taper today) -Supplemental oxygen-home o2 arranged. Acute tracheobronchitis -Improving on Augmentin plus Zithromax. -Cough medications. DM2 -Stable glycemic trends. Continue NPH linked with steroid dose. -Continue basal/bolus regimen. HTN -Stable -on Isordil Anxiety disorders -Continue home medications - PRN Xanax Overactive bladder -Pyridium PRN for dysuria. -On Ditropan Tobacco abuse -Counseled on cessation. Provide nicotine patch Chronic Back pain -pain control Obesity with a BMI 32.8 -Weight reduction advised Constipation -repeat [place] enema x1 -Stool softeners/laxatives Chronic abdominal wall hernia -Counseled on weight reduction and outpatient surgical follow-up. DVT prophylaxis: Lovenox Disposition: Overall patient is improving gradually. Home oxygen arranged. Likely DC in a.m. with outpatient follow-up. Patient was seen in collaboration with . Result Diagram: 03/25/19 1800 03/25/19 1800 Results 24hrs Laboratory Tests Test 03/28/19 12:36 03/28/19 14:15 03/28/19 17:29 03/28/19 20:14 Bedside Glucose 150 172 149 239 H Test 03/28/19 22:17 03/29/19 02:09 03/29/19 05:56 03/29/19 09:03 Bedside Glucose 128 125 131 172 Exam/Review of Systems Exam Vitals Vital Signs Date Temp Pulse Resp B/P (MAP) Pulse Ox O2 O2 Flow FiO2 Time Delivery Rate 03/29/19 63 18 94 Nasal 2.0 10:09 Cannula 03/29/19 97.9 138/63 07:40 (88) 03/27/19 07:48 Intake and Output 03/28/19 03/28/19 03/29/19 1515:00 23:00 07:00 IntakeIntake Total 600 ml 240 ml 850 ml OutputOutput Total 450 ml 1500 ml BalanceBalance 150 ml 240 ml -650 ml Results Results 24hrs Laboratory Tests Test 03/28/19 12:36 03/28/19 14:15 03/28/19 17:29 03/28/19 20:14 Bedside Glucose 150 172 149 239 H Test 03/28/19 22:17 03/29/19 02:09 03/29/19 05:56 03/29/19 09:03 Bedside Glucose 128 125 131 172 Medications Medication Current Medications IV Flush (NS 3 ml) 3 ml PER PROTOCOL IV ; Start 03/25/19 at 20:30 Ondansetron HCl (Zofran Inj) 4 mg Q6H PRN IV NAUSEA/VOMITING; Start 03/25/19 at 20:30 Acetaminophen (Tylenol Tab) 650 mg Q6H PRN PO .PAIN 1-3 OR TEMP Last administered on 03/26/19at 00:25; Admin Dose 650 MG; Start 03/25/19 at 20:30 Bisacodyl (Dulcolax) 5 mg DAILY PRN PO .CONSTIPATION; Start 03/25/19 at 20:30 Enoxaparin Sodium (Lovenox) 40 mg DAILY SC Last administered on 03/29/19at 09:15; Admin Dose 40 MG; Start 03/26/19 at 09:00 Albuterol/ Ipratropium (Duoneb) 3 ml Q4H RESP THERAPY HHN Last administered on 03/29/19at 08:16; Admin Dose 3 ML; Start 03/25/19 at 21:00 Gabapentin (Neurontin) 300 mg TID PO Last administered on 03/29/19 09:09; Admin Dose 300 MG; Start 03/26/19 at 09:00 Nicotine (Nicoderm 14 Mg/ 24hr) 1 patch DAILY TRANSDERM Last administered on 03/29/19at 09:06; Admin Dose 1 PATCH; Start 03/26/19 at 09:00 Albuterol (Proventil 0.083% (Neb)) 2.5 mg Q2H RESP THERAPY PRN HHN SHORTNESS OF BREATH Last administered on 03/29/19 10:08; Admin Dose 2.5 MG; Start 03/25/19 at 23:30 Diagnostic Test (Pha) (Accu-Chek) 1 ea 02 XX ; Start 03/26/19 at 02:00 Insulin Aspart (Novolog Insulin Pen) NOVOLOG *MILD* ALGORITHM WITH MEALS BEDTIME SC Last administered on 03/29/19at 09:14; Admin Dose 1 UNIT; Start 03/26/19 at 08:00 Miscellaneous Information 1 ea NOTE XX ; Start 03/25/19 at 23:30 Glucose (Glutose) 15 gm Q15M PRN PO DECREASED GLUCOSE; Start 03/25/19 at 23:30 Glucose (Glutose) 22.5 gm Q15M PRN PO DECREASED GLUCOSE; Start 03/25/19 at 23:30 Dextrose (D50w Syringe) 25 ml Q15M PRN IV DECREASED GLUCOSE; Start 03/25/19 at 23:30 Dextrose (D50w Syringe) 50 ml Q15M PRN IV DECREASED GLUCOSE; Start 03/25/19 at 23:30 Glucagon (Glucagen) 1 mg Q15M PRN IM DECREASED GLUCOSE; Start 03/25/19 at 23:30 Glucose (Glutose) 15 gm Q15M PRN BUCCAL DECREASED GLUCOSE; Start 03/25/19 at 23:30 Zolpidem Tartrate (Ambien) 5 mg HS PRN PO INSOMNIA Last administered on 03/28/19at 22:10; Admin Dose 5 MG; Start 03/25/19 at 23:30 Baclofen (Lioresal) 10 mg DAILY PO Last administered on 7/16/19at 09:07; Admin Dose 10 MG; Start 03/26/19 at 09:00 Bupropion HCl (Wellbutrin Sr) 150 mg BID PO Last administered on 03/29/19 09:07; Admin Dose 150 MG; Start 03/26/19 at 09:00 Carisoprodol (Soma) 350 mg Q12 PO Last administered on 03/29/19 09:08; Admin Dose 350 MG; Start 03/26/19 at 09:00 Isosorbide Dinitrate (Isordil) 10 mg TID PO Last administered on 03/29/19 09:07; Admin Dose 10 MG; Start 03/26/19 at 09:00 Oxybutynin Chloride (Ditropan Xl) 10 mg DAILY PO Last administered on 03/29/19 09:09; Admin Dose 10 MG; Start 03/26/19 at 09:00 Tramadol HCl (Ultram) 100 mg Q6H PRN PO PAIN LEVEL 1-3 Last administered on 03/28/19 06:34; Admin Dose 100 MG; Start 03/26/19 at 04:30 Pantoprazole (Protonix Tab) 40 mg DAILY@06 PO Last administered on 03/29/19 05:47; Admin Dose 40 MG; Start 03/26/19 at 06:00 Arformoterol Tartrate (Brovana (Neb)) 2 ml BID RESP THERAPY INH Last administered on 03/27/19 20:26; Admin Dose 2 ML; Start 03/26/19 at 20:00 Budesonide (Pulmicort (Neb)) 0.5 mg BID RESP THERAPY INH Last administered on 03/29/19 08:34; Admin Dose 0.5 MG; Start 03/26/19 at 20:00 Methylprednisolone Sodium Succinate (Solu-Medrol) 40 mg Q8 IV Last administered on 03/29/19 05:46; Admin Dose 40 MG; Start 03/26/19 at 14:00 Morphine Sulfate (morphine) 2 mg Q4H PRN IV SEVERE PAIN LEVEL 7-10 Last administered on 03/29/19 11:14; Admin Dose 2 MG; Start 03/26/19 at 12:30 Tiotropium [place] (Spiriva) 1 inh DAILY INH Last administered on 03/29/19 09:04; Admin Dose 1 INH; Start 03/26/19 at 13:30 Insulin Human NPH (Humulin N) 10 unit Q8 SC Last administered on 03/29/19 06:03; Admin Dose 10 UNIT; Start 03/26/19 at 14:00 Guaifenesin/ Dextromethorphan (Robitussin Dm Liquid Cup) 10 ml Q4H PRN PO cough Last administered on 03/28/19 20:19; Admin Dose 10 ML; Start 03/26/19 at 12:30 Azithromycin (Zithromax) 500 mg DAILY PO Last administered on 03/29/19 09:07; Admin Dose 500 MG; Start 03/27/19 at 12:30; Stop 04/01/19 at 12:29 Guaifenesin/ Dextromethorphan (Mucinex Dm) 1 tab BID PO Last administered on 03/29/19 09:08; Admin Dose 1 TAB; Start 03/27/19 at 13:00 Alprazolam (Xanax) 0.25 mg BID PRN PO anxiety Last administered on 03/27/19 14:17; Admin Dose 0.25 MG; Start 03/27/19 at 12:30 Trazodone HCl (Desyrel) 50 mg HS PO Last administered on 03/28/19 20:22; Admin Dose 50 MG; Start 03/27/19 at 21:00 Amoxicillin/ Clavulanate Potassium (Augmentin) 875 mg BID PO Last administered on 03/29/19 09:07; Admin Dose 875 MG; Start 03/27/19 at 13:00 Tramadol HCl (Ultram) 50 mg TID PRN PO shoulder pain Last administered on 03/29/19 09:10; Admin Dose 50 MG; Start 03/28/19 at 10:00 Psyllium Hydrophilic Mucilloid (Metamucil) 1 pkt DAILY PO Last administered on 03/29/19 09:05; Admin Dose 1 PKT; Start 03/28/19 at 10:30 Docusate Sodium (Colace) 200 mg BID PO Last administered on 03/29/19 09:06; Admin Dose 200 MG; Start 03/28/19 at 10:30 Senna (Senokot) 2 tab BID PO Last administered on 03/29/19 09:07; Admin Dose 2 TAB; Start 03/28/19 at 21:00 MAC MAY NP Mar 29, 2019 11:52
[2019-03-29] MEDS ORDERED: NA PHOSPHATE/BIPHOS 133 ML ENEMA PR PRN (12:00)
[2019-03-29] MEDS ORDERED: NA PHOSPHATE/BIPHOS 133 ML ENEMA PR ONE (12:00)
[2019-03-29] MEDS ORDERED: HYDROmorphONE 1 MG/ML SYG IV PRN (12:00)
[2019-03-29] MEDS: GUAIFENESIN/DM 5ML CUP PO PRN (13:00)
[2019-03-29] MEDS: BENZONATATE 100 MG CAP PO SCH ×2 (14:08→21:35)
[2019-03-29 14:13] VITALS: BP 127/58; PULSE 72; RESP 18
[2019-03-29] MEDS: traMADol 50 MG TAB PO PRN (18:12)
[2019-03-29 19:58] VITALS: BP 146/65; PULSE 78; RESP 20
[2019-03-29] MEDS: traZODone 50 MG TAB PO SCH (21:37)
[2019-03-30] MEDS: ALBUTEROL/IPRATROPIUM (NEB) 3 ML AMP HHN SCH ×6 (00:37→20:00)
[2019-03-30 01:54] VITALS: BP 127/60; PULSE 82; RESP 20
[2019-03-30] MEDS: ACCU-CHEK XX SCH (01:59)
[2019-03-30] MEDS: PANTOPRAZOLE (EC) 40 MG TAB PO SCH (05:44)
[2019-03-30 07:47] VITALS: BP 112/56; PULSE 64; RESP 20
[2019-03-30] MEDS: GUAIFENESIN/DM 5ML CUP PO PRN ×2 (07:55→13:02)
[2019-03-30] MEDS: BISACODYL (EC) 5 MG TAB PO PRN (07:56)
[2019-03-30] MEDS: morphine 2 MG INJ IV PRN ×3 (07:56→22:43)
[2019-03-30] MEDS: INSULIN ASPART [NOVOLOG] 3 ML PEN SC SCH ×4 (08:00→20:44)
[2019-03-30] MEDS: ARFORMOTEROL TARTRATE 15MCG/2 ML AMP INH SCH ×2 (08:06→19:56)
[2019-03-30] MEDS: BUDESONIDE (NEB) 0.5MG/2ML AMP INH SCH ×2 (08:07→19:56)
[2019-03-30] MEDS: ENOXAPARIN 40 MG/0.4 ML SYG SC SCH (09:04)
[2019-03-30] MEDS: TIOTROPIUM 18 MCG CAPSULE INHA DEV INH SCH (09:05)
[2019-03-30] MEDS: METHYLPREDNISOLONE 40 MG INJ IV SCH ×2 (09:05→20:42)
[2019-03-30] MEDS: PSYLLIUM 28% PACKET PO SCH ×2 (09:05→20:44)
[2019-03-30] MEDS: BUPROPION (SR) 150 MG TAB PO SCH ×2 (09:06→20:43)
[2019-03-30] MEDS: NICOTINE (14 MG/24 HR) PATCH TRANSDERM SCH (09:06)
[2019-03-30] MEDS: CARISOPRODOL 350 MG TAB PO SCH ×2 (09:06→20:44)
[2019-03-30] MEDS: AMOXICILLIN/CLAV 875 MG TAB PO SCH ×2 (09:06→20:43)
[2019-03-30] MEDS: BENZONATATE 100 MG CAP PO SCH ×3 (09:06→20:42)
[2019-03-30] MEDS: GUAIFENESIN/DM (SR) TAB PO SCH ×2 (09:06→20:43)
[2019-03-30] MEDS: AZITHROMYCIN 500 MG TAB PO SCH (09:07)
[2019-03-30] MEDS: ISOSORBIDE DINITRATE 10 MG TAB PO SCH ×3 (09:07→20:43)
[2019-03-30] MEDS: BACLOFEN 10 MG TAB PO SCH (09:07)
[2019-03-30] MEDS: DOCUSATE SODIUM 100 MG CAP PO SCH ×2 (09:07→20:44)
[2019-03-30] MEDS: GABAPENTIN 300 MG CAP PO SCH ×3 (09:07→20:44)
[2019-03-30] MEDS: SENNA TAB PO SCH ×2 (09:07→20:43)
[2019-03-30] MEDS: OXYBUTYNIN (XL) 5 MG TAB PO SCH (09:08)
[2019-03-30] MEDS: NPH, HUMAN INSULIN ISOPHANE 3ML VIAL SC SCH ×2 (09:11→20:41)
--- NOTE | 2019-03-30 12:06 | PN ---
Date/Time of Note Date/Time of Note DATE: 03/30/19 TIME: 12:03 Assessment/Plan VTE Prophylaxis Risk score (from Nsg)>0 risk: 6 SCD applied (from Ns): No SCD contraindicated: other Pharmacological prophylaxis: LMWH Lines/Catheters IV Catheter Type (from Nrsg): Peripheral IV Urinary Cath still in place: No Assessment/Plan Hospital Course SUBJECTIVE:Cont. to have wheezing and cough. c/o constipation OBJECTIVE: Vital signs-see below PHYSICAL EXAM: Constitutional: Adequately built,not in acute distress. HEENT: Head atraumatic and normocephalic. Eyes: Extraocular muscles intact. Anicteric sclerae. Pupils equal bilaterally, reactive to light. NECK: Supple without lymph node. CHEST: Expiratory wheezing bilaterally-improving. HEART: S1, S2. Regular rate and rhythm. ABDOMEN:+Chronic Hernia. Slightly distended, no tenderness. Bowel sounds were present. EXTREMITIES: No cyanosis, clubbing or edema. NEUROLOGIC: Alert and oriented x3. No focal deficit. No sensory deficit. PSYCHOSOCIAL: No signs of depression. INTEGUMENTARY: No open wounds. ASSESSMENT AND PLAN:64 yo w/copd,current every day smoker,dm neuropathy,anxiety, chronic back pain, here w/cough/sob... COPD exacerbation -symptoms persists -Continue [id number] Rosalind, Brovana nebulization, IV steroids -Pulm consult -Supplemental oxygen-home o2 arranged. Acute tracheobronchitis -Improving on Augmentin plus Zithromax. -Cough medications. DM2 -Stable glycemic trends. Continue NPH linked with steroid dose. -Continue basal/bolus regimen. HTN -Stable -on Isordil Anxiety disorders -Continue home medications - PRN Xanax Overactive bladder -Pyridium PRN for dysuria. -On Ditropan Tobacco abuse -Counseled on cessation. Provide nicotine patch Chronic Back pain -pain control Obesity with a BMI 32.8 -Weight reduction advised Constipation -s/p enema -no BM. Repeat enema nor admisitered -Repeat enema -add mom -Stool softeners/laxatives Chronic abdominal wall hernia -Counseled on weight reduction and outpatient surgical follow-up. DVT prophylaxis: Lovenox Disposition: pt still w/symptoms. not feeling well to go home. pulmonary consult. Patient was seen in collaboration with Dr.Rahi. Results 24hrs Laboratory Tests Test 03/29/19 12:58 03/29/19 17:55 03/29/19 21:41 03/30/19 08:30 Bedside Glucose 151 93 109 108 Exam/Review of Systems Exam Vitals Vital Signs Date Temp Pulse Resp B/P (MAP) Pulse Ox O2 O2 Flow FiO2 Time Delivery Rate 03/30/19 3.0 08:25 03/30/19 63 18 95 Nasal 08:25 Cannula 03/30/19 98.7 112/56 07:47 (74) 03/27/19 07:48 Intake and Output 03/29/19 03/29/19 03/30/19 1515:00 23:00 07:00 IntakeIntake Total 620 ml OutputOutput Total 150 ml BalanceBalance -150 ml 620 ml Results Results 24hrs Laboratory Tests Test 03/29/19 12:58 03/29/19 17:55 03/29/19 21:41 03/30/19 08:30 Bedside Glucose 151 93 109 108 Medications Medication Current Medications IV Flush (NS 3 ml) 3 ml PER PROTOCOL IV ; Start 03/25/19 at 20:30 Ondansetron HCl (Zofran Inj) 4 mg Q6H PRN IV NAUSEA/VOMITING; Start 03/25/19 at 20:30 Acetaminophen (Tylenol Tab) 650 mg Q6H PRN PO .PAIN 1-3 OR TEMP Last administered on 03/26/19at 00:25; Admin Dose 650 MG; Start 03/25/19 at 20:30 Bisacodyl (Dulcolax) 5 mg DAILY PRN PO .CONSTIPATION Last administered on 03/30/19at 07:56; Admin Dose 5 MG; Start 03/25/19 at 20:30 Enoxaparin Sodium (Lovenox) 40 mg DAILY SC Last administered on 03/30/19at 09:04; Admin Dose 40 MG; Start 03/26/19 at 09:00 Albuterol/ Ipratropium (Duoneb) 3 ml Q4H RESP THERAPY HHN Last administered on 03/30/19at 08:06; Admin Dose 3 ML; Start 03/25/19 at 21:00 Gabapentin (Neurontin) 300 mg TID PO Last administered on 03/30/19at 09:07; Admin Dose 300 MG; Start 03/26/19 at 09:00 Nicotine (Nicoderm 14 Mg/ 24hr) 1 patch DAILY TRANSDERM Last administered on 03/30/19at 09:06; Admin Dose 1 PATCH; Start 03/26/19 at 09:00 Albuterol (Proventil 0.083% (Neb)) 2.5 mg Q2H RESP THERAPY PRN HHN SHORTNESS OF BREATH Last administered on 03/29/19at 10:08; Admin Dose 2.5 MG; Start 03/25/19 at 23:30 Diagnostic Test (Pha) (Accu-Chek) 1 ea 02 XX ; Start 03/26/19 at 02:00 Insulin Aspart (Novolog Insulin Pen) NOVOLOG *MILD* ALGORITHM WITH MEALS BEDTIME SC Last administered on 03/29/19at 13:12; Admin Dose 1 UNIT; Start 03/26/19 at 08:00 Miscellaneous Information 1 ea NOTE XX ; Start 03/25/19 at 23:30 Glucose (Glutose) 15 gm Q15M PRN PO DECREASED GLUCOSE; Start 03/25/19 at 23:30 Glucose (Glutose) 22.5 gm Q15M PRN PO DECREASED GLUCOSE; Start 03/25/19 at 23:30 Dextrose (D50w Syringe) 25 ml Q15M PRN IV DECREASED GLUCOSE; Start 03/25/19 at 23:30 Dextrose (D50w Syringe) 50 ml Q15M PRN IV DECREASED GLUCOSE; Start 03/25/19 at 23:30 Glucagon (Glucagen) 1 mg Q15M PRN IM DECREASED GLUCOSE; Start 03/25/19 at 23:30 Glucose (Glutose) 15 gm Q15M PRN BUCCAL DECREASED GLUCOSE; Start 03/25/19 at 23:30 Zolpidem Tartrate (Ambien) 5 mg HS PRN PO INSOMNIA Last administered on 03/28/19at 22:10; Admin Dose 5 MG; Start 03/25/19 at 23:30 Baclofen (Lioresal) 10 mg DAILY PO Last administered on 03/30/19at 09:07; Admin Dose 10 MG; Start 03/26/19 at 09:00 Bupropion HCl (Wellbutrin Sr) 150 mg BID PO Last administered on 03/30/19at 09:06; Admin Dose 150 MG; Start 03/26/19 at 09:00 Carisoprodol (Soma) 350 mg Q12 PO Last administered on 03/30/19 09:06; Admin Dose 350 MG; Start 03/26/19 at 09:00 Isosorbide Dinitrate (Isordil) 10 mg TID PO Last administered on 03/30/19 09:07; Admin Dose 10 MG; Start 03/26/19 at 09:00 Oxybutynin Chloride (Ditropan Xl) 10 mg DAILY PO Last administered on 03/30/19 09:08; Admin Dose 10 MG; Start 03/26/19 at 09:00 Tramadol HCl (Ultram) 100 mg Q6H PRN PO PAIN LEVEL 1-3 Last administered on 03/29/19 18:12; Admin Dose 100 MG; Start 03/26/19 at 04:30 Pantoprazole (Protonix Tab) 40 mg DAILY@06 PO Last administered on 03/30/19 05:44; Admin Dose 40 MG; Start 03/26/19 at 06:00 Arformoterol Tartrate (Brovana (Neb)) 2 ml BID RESP THERAPY INH Last administered on 03/30/19 08:06; Admin Dose 2 ML; Start 03/26/19 at 20:00 Budesonide (Pulmicort (Neb)) 0.5 mg BID RESP THERAPY INH Last administered on 03/30/19 08:07; Admin Dose 0.5 MG; Start 03/26/19 at 20:00 Morphine Sulfate (morphine) 2 mg Q4H PRN IV SEVERE PAIN LEVEL 7-10 Last administered on 03/30/19 07:56; Admin Dose 2 MG; Start 03/26/19 at 12:30 Tiotropium [place] (Spiriva) 1 inh DAILY INH Last administered on 03/30/19 09:05; Admin Dose 1 INH; Start 03/26/19 at 13:30 Guaifenesin/ Dextromethorphan (Robitussin Dm Liquid Cup) 10 ml Q4H PRN PO cough Last administered on 03/30/19 07:55; Admin Dose 10 ML; Start 03/26/19 at 12:30 Azithromycin (Zithromax) 500 mg DAILY PO Last administered on 03/30/19 09:07; Admin Dose 500 MG; Start 03/27/19 at 12:30; Stop 04/01/19 at 12:29 Guaifenesin/ Dextromethorphan (Mucinex Dm) 1 tab BID PO Last administered on 03/30/19 09:06; Admin Dose 1 TAB; Start 03/27/19 at 13:00 Alprazolam (Xanax) 0.25 mg BID PRN PO anxiety Last administered on 03/27/19 14:17; Admin Dose 0.25 MG; Start 03/27/19 at 12:30 Trazodone HCl (Desyrel) 50 mg HS PO Last administered on 03/29/19 21:37; Admin Dose 50 MG; Start 03/27/19 at 21:00 Amoxicillin/ Clavulanate Potassium (Augmentin) 875 mg BID PO Last administered on 03/30/19 09:06; Admin Dose 875 MG; Start 03/27/19 at 13:00 Tramadol HCl (Ultram) 50 mg TID PRN PO shoulder pain Last administered on 03/29/19 09:10; Admin Dose 50 MG; Start 03/28/19 at 10:00 Docusate Sodium (Colace) 200 mg BID PO Last administered on 03/30/19 09:07; Admin Dose 200 MG; Start 03/28/19 at 10:30 Senna (Senokot) 2 tab BID PO Last administered on 03/30/19 09:07; Admin Dose 2 TAB; Start 03/28/19 at 21:00 Methylprednisolone Sodium Succinate (Solu-Medrol) 40 mg BID IV Last administered on 03/30/19 09:05; Admin Dose 40 MG; Start 03/29/19 at 21:00 Psyllium Hydrophilic Mucilloid (Metamucil) 1 pkt BID PO Last administered on 03/30/19 09:05; Admin Dose 1 PKT; Start 03/29/19 at 21:00 Sodium Biphosphate/ Sodium Phosphate (Fleet Enema) 133 ml DAILY PRN CA CONSTI PATION; Start 03/29/19 at 12:00 Benzonatate (Tessalon) 100 mg TID PO Last administered on 03/30/19 09:06; Admin Dose 100 MG; Start 03/29/19 at 13:00 Insulin Human NPH (Humulin N) 10 unit BID SC Last administered on 03/30/19 09:11; Admin Dose 10 UNIT; Start 03/29/19 at 21:00 MAC MAY NP Mar 30, 2019 12:06
[2019-03-30] MEDS ORDERED: MAGNESIUM HYDROXIDE 30ML CUP PO PRN (12:30)
[2019-03-30] MEDS: traMADol 50 MG TAB PO PRN (12:48)
[2019-03-30 13:00] VITALS: BP 114/59; RESP 22
[2019-03-30] MEDS ORDERED: POTASSIUM CHLORIDE 50 ML IVPB SCH (13:30)
[2019-03-30 16:38] VITALS: BP 128/66; PULSE 90; RESP 20
[2019-03-30 19:40] VITALS: BP 133/68; PULSE 82; RESP 18
[2019-03-30] MEDS: traZODone 50 MG TAB PO SCH (20:44)
[2019-03-30] MEDS: ZOLPIDEM 5 MG TAB PO PRN (20:57)
[2019-03-31] MEDS: ALBUTEROL/IPRATROPIUM (NEB) 3 ML AMP HHN SCH ×6 (00:44→20:12)
[2019-03-31] MEDS: ALPRAZOLAM 0.25 MG TAB PO PRN (00:57)
[2019-03-31] MEDS: ACCU-CHEK XX SCH (01:30)
[2019-03-31 02:17] VITALS: BP 130/58; PULSE 73; RESP 18
[2019-03-31] MEDS: morphine 2 MG INJ IV PRN ×3 (04:17→18:41)
[2019-03-31] MEDS: PANTOPRAZOLE (EC) 40 MG TAB PO SCH (05:42)
[2019-03-31 07:59] VITALS: BP 141/67; PULSE 66; RESP 16
[2019-03-31] MEDS: INSULIN ASPART [NOVOLOG] 3 ML PEN SC SCH ×4 (08:00→20:32)
[2019-03-31] MEDS: ARFORMOTEROL TARTRATE 15MCG/2 ML AMP INH SCH ×2 (08:18→20:12)
[2019-03-31] MEDS: BUDESONIDE (NEB) 0.5MG/2ML AMP INH SCH ×2 (08:18→20:12)
[2019-03-31] MEDS: PSYLLIUM 28% PACKET PO SCH ×2 (08:44→20:32)
[2019-03-31] MEDS: CARISOPRODOL 350 MG TAB PO SCH ×2 (08:45→20:32)
[2019-03-31] MEDS: GUAIFENESIN/DM (SR) TAB PO SCH ×2 (08:45→20:32)
[2019-03-31] MEDS: METHYLPREDNISOLONE 40 MG INJ IV SCH ×2 (08:45→20:31)
[2019-03-31] MEDS: DOCUSATE SODIUM 100 MG CAP PO SCH ×2 (08:45→20:32)
[2019-03-31] MEDS: OXYBUTYNIN (XL) 5 MG TAB PO SCH (08:45)
[2019-03-31] MEDS: BENZONATATE 100 MG CAP PO SCH ×3 (08:46→20:32)
[2019-03-31] MEDS: ISOSORBIDE DINITRATE 10 MG TAB PO SCH ×3 (08:46→20:32)
[2019-03-31] MEDS: GABAPENTIN 300 MG CAP PO SCH ×3 (08:46→20:31)
[2019-03-31] MEDS: AMOXICILLIN/CLAV 875 MG TAB PO SCH ×2 (08:46→20:32)
[2019-03-31] MEDS: BACLOFEN 10 MG TAB PO SCH (08:46)
[2019-03-31] MEDS: BUPROPION (SR) 150 MG TAB PO SCH ×2 (08:46→20:32)
[2019-03-31] MEDS: AZITHROMYCIN 500 MG TAB PO SCH (08:46)
[2019-03-31] MEDS: SENNA TAB PO SCH ×2 (08:46→20:32)
[2019-03-31] MEDS: ENOXAPARIN 40 MG/0.4 ML SYG SC SCH (08:48)
[2019-03-31] MEDS: NICOTINE (14 MG/24 HR) PATCH TRANSDERM SCH (08:50)
[2019-03-31] MEDS: NPH, HUMAN INSULIN ISOPHANE 3ML VIAL SC SCH ×2 (09:00→20:22)
[2019-03-31] MEDS: GUAIFENESIN/DM 5ML CUP PO PRN (10:40)
[2019-03-31] MEDS: TIOTROPIUM 18 MCG CAPSULE INHA DEV INH SCH (10:40)
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
--- NOTE | 2019-03-31 13:03 | PN ---
Date/Time of Note Date/Time of Note DATE: 03/31/19 TIME: 13:01 Assessment/Plan VTE Prophylaxis Risk score (from Nsg)>0 risk: 3 SCD applied (from Nsg): Yes Pharmacological prophylaxis: LMWH Lines/Catheters IV Catheter Type (from Nrsg): Peripheral IV Urinary Cath still in place: No Assessment/Plan Hospital Course SUBJECTIVE: Has not had a bowel movement yet. She continued to have wheezing but improved. OBJECTIVE: Vital signs-see below PHYSICAL EXAM: Constitutional: Adequately built,not in acute distress. HEENT: Head atraumatic and normocephalic. Eyes: Extraocular muscles intact. Anicteric sclerae. Pupils equal bilaterally, reactive to light. NECK: Supple without lymph node. CHEST: Expiratory wheezing bilaterally-improving. HEART: S1, S2. Regular rate and rhythm. ABDOMEN:+Chronic Hernia. Slightly distended, no tenderness. Bowel sounds were present. EXTREMITIES: No cyanosis, clubbing or edema. NEUROLOGIC: Alert and oriented x3. No focal deficit. No sensory deficit. PSYCHOSOCIAL: No signs of depression. INTEGUMENTARY: No open wounds. ASSESSMENT AND PLAN:64 yo w/copd,current every day smoker,dm neuropathy,anxiety, chronic back pain, here w/cough/sob... COPD exacerbation -symptoms persists -Continue [id number] Rosalind, Brovana nebulization, IV steroids -Pulm consult -Supplemental oxygen-home o2 arranged. Acute tracheobronchitis -Improving on Augmentin plus Zithromax. -Cough medications. DM2 -Stable glycemic trends. Continue NPH linked with steroid dose. -Continue basal/bolus regimen. HTN -Stable -on Isordil Anxiety disorders -Continue home medications - PRN Xanax Overactive bladder -Pyridium PRN for dysuria. -On Ditropan Tobacco abuse -Counseled on cessation. Provide nicotine patch Chronic Back pain -pain control Obesity with a BMI 32.8 -Weight reduction advised Constipation -no BMs w/ multiple enemas and laxatives trial. -GI consult Chronic abdominal wall hernia -Counseled on weight reduction and outpatient surgical follow-up. Anxiety disorders -PRN Benzo DVT prophylaxis: Lovenox Disposition: Continue current management. DC planning when clinically stable. Patient was seen in collaboration with . Results 24hrs Laboratory Tests Test 03/30/19 17:38 03/30/19 20:25 03/31/19 07:59 03/31/19 12:02 Bedside Glucose 151 165 120 112 Exam/Review of Systems Exam Vitals Vital Signs Date Temp Pulse Resp B/P (MAP) Pulse Ox O2 O2 Flow FiO2 Time Delivery Rate 03/31/19 79 22 94 Nasal 3.0 12:17 Cannula 03/31/19 97.5 141/67 07:59 (91) 03/27/19 21 07:48 Intake and Output 03/30/19 03/30/19 03/31/19 1515:00 23:00 07:00 IntakeIntake Total 840 ml 500 ml 700 ml OutputOutput Total 1200 ml BalanceBalance 840 ml 500 ml -500 ml Results Results 24hrs Laboratory Tests Test 03/30/19 17:38 03/30/19 20:25 03/31/19 07:59 03/31/19 12:02 Bedside Glucose 151 165 120 112 Medications Medication Current Medications IV Flush (NS 3 ml) 3 ml PER PROTOCOL IV ; Start 03/25/19 at 20:30 Ondansetron HCl (Zofran Inj) 4 mg Q6H PRN IV NAUSEA/VOMITING; Start 03/25/19 at 20:30 Acetaminophen (Tylenol Tab) 650 mg Q6H PRN PO .PAIN 1-3 OR TEMP Last administered on 03/26/19at 00:25; Admin Dose 650 MG; Start 03/25/19 at 20:30 Bisacodyl (Dulcolax) 5 mg DAILY PRN PO .CONSTIPATION Last administered on 03/30/19at 07:56; Admin Dose 5 MG; Start 03/25/19 at 20:30 Enoxaparin Sodium (Lovenox) 40 mg DAILY SC Last administered on 03/31/19at 08:48; Admin Dose 40 MG; Start 03/26/19 at 09:00 Albuterol/ Ipratropium (Duoneb) 3 ml Q4H RESP THERAPY HHN Last administered on 03/31/19at 12:16; Admin Dose 3 ML; Start 03/25/19 at 21:00 Gabapentin (Neurontin) 300 mg TID PO Last administered on 03/31/19at 12:27; Admin Dose 300 MG; Start 03/26/19 at 09:00 Nicotine (Nicoderm 14 Mg/ 24hr) 1 patch DAILY TRANSDERM Last administered on 03/31/19 08:50; Admin Dose 1 PATCH; Start 03/26/19 at 09:00 Albuterol (Proventil 0.083% (Neb)) 2.5 mg Q2H RESP THERAPY PRN HHN SHORTNESS OF BREATH Last administered on 03/29/19at 10:08; Admin Dose 2.5 MG; Start 03/25/19 at 23:30 Diagnostic Test (Pha) (Accu-Chek) 1 ea 02 XX ; Start 03/26/19 at 02:00 Insulin Aspart (Novolog Insulin Pen) NOVOLOG *MILD* ALGORITHM WITH MEALS BEDTIME SC Last administered on 03/30/19 17:46; Admin Dose 1 UNIT; Start 03/26/19 at 08:00 Miscellaneous Information 1 ea NOTE XX ; Start 03/25/19 at 23:30 Glucose (Glutose) 15 gm Q15M PRN PO DECREASED GLUCOSE; Start 03/25/19 at 23:30 Glucose (Glutose) 22.5 gm Q15M PRN PO DECREASED GLUCOSE; Start 03/25/19 at 23:30 Dextrose (D50w Syringe) 25 ml Q15M PRN IV DECREASED GLUCOSE; Start 03/25/19 at 23:30 Dextrose (D50w Syringe) 50 ml Q15M PRN IV DECREASED GLUCOSE; Start 03/25/19 at 23:30 Glucagon (Glucagen) 1 mg Q15M PRN IM DECREASED GLUCOSE; Start 03/25/19 at 23:30 Glucose (Glutose) 15 gm Q15M PRN BUCCAL DECREASED GLUCOSE; Start 03/25/19 at 23:30 Zolpidem Tartrate (Ambien) 5 mg HS PRN PO INSOMNIA Last administered on 03/30/19at 20:57; Admin Dose 5 MG; Start 03/25/19 at 23:30 Baclofen (Lioresal) 10 mg DAILY PO Last administered on 03/31/19 08:46; Admin Dose 10 MG; Start 03/26/19 at 09:00 Bupropion HCl (Wellbutrin Sr) 150 mg BID PO Last administered on 03/31/19 08:46; Admin Dose 150 MG; Start 03/26/19 at 09:00 Carisoprodol (Soma) 350 mg Q12 PO Last administered on 03/31/19 08:45; Admin Dose 350 MG; Start 03/26/19 at 09:00 Isosorbide Dinitrate (Isordil) 10 mg TID PO Last administered on 03/31/19 12:29; Admin Dose 10 MG; Start 03/26/19 at 09:00 Oxybutynin Chloride (Ditropan Xl) 10 mg DAILY PO Last administered on 03/31/19 08:45; Admin Dose 10 MG; Start 03/26/19 at 09:00 Tramadol HCl (Ultram) 100 mg Q6H PRN PO PAIN LEVEL 1-3 Last administered on 03/30/19 12:48; Admin Dose 100 MG; Start 03/26/19 at 04:30 Pantoprazole (Protonix Tab) 40 mg DAILY@06 PO Last administered on 03/31/19 05:42; Admin Dose 40 MG; Start 03/26/19 at 06:00 Arformoterol Tartrate (Brovana (Neb)) 2 ml BID RESP THERAPY INH Last administered on 03/31/19 08:18; Admin Dose 2 ML; Start 03/26/19 at 20:00 Budesonide (Pulmicort (Neb)) 0.5 mg BID RESP THERAPY INH Last administered on 03/31/19 08:18; Admin Dose 0.5 MG; Start 03/26/19 at 20:00 Morphine Sulfate (morphine) 2 mg Q4H PRN IV SEVERE PAIN LEVEL 7-10 Last administered on 03/31/19 10:41; Admin Dose 2 MG; Start 03/26/19 at 12:30 Tiotropium Baker (Spiriva) 1 inh DAILY INH Last administered on 03/31/19 10:40; Admin Dose 1 INH; Start 03/26/19 at 13:30 Guaifenesin/ Dextromethorphan (Robitussin Dm Liquid Cup) 10 ml Q4H PRN PO cough Last administered on 03/31/19 10:40; Admin Dose 10 ML; Start 03/26/19 at 12:30 Azithromycin (Zithromax) 500 mg DAILY PO Last administered on 03/31/19 08:46; Admin Dose 500 MG; Start 03/27/19 at 12:30; Stop 04/01/19 at 12:29 Guaifenesin/ Dextromethorphan (Mucinex Dm) 1 tab BID PO Last administered on 03/31/19 08:45; Admin Dose 1 TAB; Start 03/27/19 at 13:00 Alprazolam (Xanax) 0.25 mg BID PRN PO anxiety Last administered on 03/31/19 00:57; Admin Dose 0.25 MG; Start 03/27/19 at 12:30 Trazodone HCl (Desyrel) 50 mg HS PO Last administered on 03/30/19 20:44; Admin Dose 50 MG; Start 03/27/19 at 21:00 Amoxicillin/ Clavulanate Potassium (Augmentin) 875 mg BID PO Last administered on 03/31/19 08:46; Admin Dose 875 MG; Start 03/27/19 at 13:00 Tramadol HCl (Ultram) 50 mg TID PRN PO shoulder pain Last administered on 03/29/19 09:10; Admin Dose 50 MG; Start 03/28/19 at 10:00 Docusate Sodium (Colace) 200 mg BID PO Last administered on 03/31/19 08:45; Admin Dose 200 MG; Start 03/28/19 at 10:30 Senna (Senokot) 2 tab BID PO Last administered on 03/31/19 08:46; Admin Dose 2 TAB; Start 03/28/19 at 21:00 Methylprednisolone Sodium Succinate (Solu-Medrol) 40 mg BID IV Last administered on 03/31/19 08:45; Admin Dose 40 MG; Start 03/29/19 at 21:00 Psyllium Hydrophilic Mucilloid (Metamucil) 1 pkt BID PO Last administered on 03/31/19 08:44; Admin Dose 1 PKT; Start 03/29/19 at 21:00 Sodium Biphosphate/ Sodium Phosphate (Fleet Enema) 133 ml DAILY PRN CA CONSTIPATION; Start 03/29/19 at 12:00 Benzonatate (Tessalon) 100 mg TID PO Last administered on 03/31/19 12:28; Admin Dose 100 MG; Start 03/29/19 at 13:00 Insulin Human NPH (Humulin N) 10 unit BID SC Last administered on 03/30/19 20:41; Admin Dose 10 UNIT; Start 03/29/19 at 21:00 Magnesium Hydroxide (Milk Of Mag) 30 ml DAILY PRN PO CONSTIPATION; Start 03/30/19 at 12:30 MAC MAY NP Mar 31, 2019 13:03
[2019-03-31] MEDS: BISACODYL (EC) 5 MG TAB PO PRN (13:18)
--- NOTE | 2019-03-31 13:36 | CONS ---
Assessment/Plan Assessment/Plan Hospital Course (Demo Recall) Summary Assessment and Plan: Assessment: Constipation COPD exacerbation DM2 HTN Chronic Back pain Obesity with a BMI 32.8 Abdominal wall hernia Anxiety/depression Plan: Lactulose 20 g p.o. twice daily D Tap water enema x1 We will start Amitiza BID Further recommendations based on clinical course Patient seen in collaboration with Dr. Eastman CC: CARLOS EASTMAN MD ; Consultation Date/Type/Reason Admit Date/Time Date of Consultation: Mar 31, 2019 Type of Consult GI Reason for Consultation Constipation Date/Time of Note DATE: 03/31/19 TIME: 13:31 Hx of Present Illness This is a 64-year-old female with past medical history of diabetes,COPD, hypertension, anxiety, depression, chronic back pain chronic use. Who was admitted for acute on chronic COPD exacerbation during hospitalization patient has not been able to have a bowel movement for the past several days. She notes that she has history of chronic constipation usually takes MiraLAX at home with good results. However since hospitalization she has not been able to ambulate as much as possible secondary to COPD exacerbation and she is been on increased pain medication for chronic pain. Enemas have been ordered with minimal relief patient states she is able to pass gas yesterday with one very small stool she felt this was incomplete evacuation. She currently denies nausea/vomiting, hematemesis, abdominal pain, melena, hematochezia, or diarrhea. Discussed plan to start lactulose twice daily with x1 tapwater enema patient verbalized understanding and is agreeable. We will additionally start Amitiza for chronic constipation Review of Systems: A 12 system, review was conducted and is negative except as noted in the HPI or here. Past Medical History Home Meds Active Scripts Docusate Sodium* (Colace*) 100 Mg Capsule, 100 MG PO TID, #30 CAP Prov:BIBI TRAMMELL. 10/21/18 Isosorbide Dinitrate* (Isordil*) 10 Mg Tablet, 10 MG PO TID, #90 TAB 4 Refills Prov:ADRIANA ALCANTAR S. 08/05/16 Salmeterol Xinaf/Fluticasone* (Advair*) 250-50 Diskus Inhaler, 1 INH INH BID, #1 4 Refills Prov:STEPHANIE ALCANTARP S. 08/05/16 Polyethylene Glycol* (Miralax*) 17 Gm Powd.pack, 17 GM PO DAILY, #30 Prov:STEPHANIE ALCANTARP S. 08/05/16 Phenazopyridine Hcl* (Phenazopyridine Hcl*) 100 Mg Tablet, 100 MG PO TID PRN for dysuria, #60 TAB Prov:STEPHANIE ALCANTARP S. 08/05/16 Tramadol HCl (Tramadol HCl) 50 Mg Tablet, 100 MG PO Q6H, #120 TAB Prov:STEPHANIE ALCANTARP S. 08/05/16 Reported Medications Oxycodone Hcl* (Oxycontin*) 40 Mg Tab.er.12h, 40 MG PO Q8, TAB 03/26/19 Baclofen* (Baclofen*) 10 Mg Tablet, 10 MG PO DAILY, TAB 03/26/19 Carisoprodol* (Carisoprodol*) 350 Mg Tablet, 350 MG PO Q12, TAB 03/26/19 Gabapentin* (Neurontin*) 300 Mg Capsule, 300 MG PO TID for Neuropathy MDD 900mg , #90 CAP 03/25/19 Temazepam* (Temazepam*) 15 Mg Capsule, 15 MG PO HS PRN for INSOMNIA, CAP 03/25/19 Oxybutynin Chloride* (Ditropan* XL) 10 Mg Tab.er.24, 10 MG PO DAILY, TAB.SA 07/25/16 Bupropion Hcl* (Wellbutrin SR*) 150 Mg Tablet.sa, 150 MG PO BID, TAB.SA 07/25/16 Metformin Hcl (Metformin Hcl ER) 500 Mg Tab.er.24h, 500 MG PO DAILY, #30 TAB.SA 07/25/16 Discontinued Reported Medications Paroxetine Hcl* (Paxil*) 20 Mg Tablet, 20 MG PO DAILY, TAB 07/25/16 Modafinil* (Modafinil*) 200 Mg Tablet, 200 MG PO DAILY, TAB 07/25/16 Discontinued Scripts Benzonatate* (Benzonatate*) 100 Mg Capsule, 100 MG PO TID PRN for cough, #90 CAP Prov:STEPHANIE ALCANTARP S. 08/05/16 Benazepril Hcl* (Benazepril Hcl*) 10 Mg Tablet, 10 MG PO BID, #60 TAB 4 Refills Prov:RAADRIANA CASTRO S. 08/05/16 Carvedilol* (Carvedilol*) 6.25 Mg Tablet, 6.25 MG PO BID, #60 TAB 4 Refills Prov:ADRIANA ALCANTAR S. 08/05/16 Nicotine* (Nicotine* Patch) 7 mg/day Patch, 1 PATCH TRANSDERM DAILY, #30 2 Refills Prov:ADRIANA ALCANTAR S. 08/05/16 Tiotropium Cades* (Spiriva*) 18 Mcg Cap.w.dev, 1 INH INH DAILY, #1 3 Refills Prov:ADRIANA ALCANTAR S. 08/05/16 Medications Current Medications IV Flush (NS 3 ml) 3 ml PER PROTOCOL IV ; Start 03/25/19 at 20:30 Ondansetron HCl (Zofran Inj) 4 mg Q6H PRN IV NAUSEA/VOMITING; Start 03/25/19 at 20:30 Acetaminophen (Tylenol Tab) 650 mg Q6H PRN PO .PAIN 1-3 OR TEMP Last administered on 03/26/19at 00:25; Admin Dose 650 MG; Start 03/25/19 at 20:30 Bisacodyl (Dulcolax) 5 mg DAILY PRN PO .CONSTIPATION Last administered on 03/31/19 13:18; Admin Dose 5 MG; Start 03/25/19 at 20:30 Enoxaparin Sodium (Lovenox) 40 mg DAILY SC Last administered on 03/31/19 08:48; Admin Dose 40 MG; Start 03/26/19 at 09:00 Albuterol/ Ipratropium (Duoneb) 3 ml Q4H RESP THERAPY HHN Last administered on 03/31/19 12:16; Admin Dose 3 ML; Start 03/25/19 at 21:00 Gabapentin (Neurontin) 300 mg TID PO Last administered on 03/31/19 12:27; Admin Dose 300 MG; Start 03/26/19 at 09:00 Nicotine (Nicoderm 14 Mg/ 24hr) 1 patch DAILY TRANSDERM Last administered on 03/31/19 08:50; Admin Dose 1 PATCH; Start 03/26/19 at 09:00 Albuterol (Proventil 0.083% (Neb)) 2.5 mg Q2H RESP THERAPY PRN HHN SHORTNESS OF BREATH Last administered on 03/29/19at 10:08; Admin Dose 2.5 MG; Start 03/25/19 at 23:30 Diagnostic Test (Pha) (Accu-Chek) 1 ea 02 XX ; Start 03/26/19 at 02:00 Insulin Aspart (Novolog Insulin Pen) NOVOLOG *MILD* ALGORITHM WITH MEALS BEDTIME SC Last administered on 03/30/19at 17:46; Admin Dose 1 UNIT; Start 03/26/19 at 08:00 Miscellaneous Information 1 ea NOTE XX ; Start 03/25/19 at 23:30 Glucose (Glutose) 15 gm Q15M PRN PO DECREASED GLUCOSE; Start 03/25/19 at 23:30 Glucose (Glutose) 22.5 gm Q15M PRN PO DECREASED GLUCOSE; Start 03/25/19 at 23:30 Dextrose (D50w Syringe) 25 ml Q15M PRN IV DECREASED GLUCOSE; Start 03/25/19 at 23:30 Dextrose (D50w Syringe) 50 ml Q15M PRN IV DECREASED GLUCOSE; Start 03/25/19 at 23:30 Glucagon (Glucagen) 1 mg Q15M PRN IM DECREASED GLUCOSE; Start 03/25/19 at 23:30 Glucose (Glutose) 15 gm Q15M PRN BUCCAL DECREASED GLUCOSE; Start 03/25/19 at 23:30 Baclofen (Lioresal) 10 mg DAILY PO Last administered on 03/31/19at 08:46; Admin Dose 10 MG; Start 03/26/19 at 09:00 Bupropion HCl (Wellbutrin Sr) 150 mg BID PO Last administered on 03/31/19at 0 8:46; Admin Dose 150 MG; Start 03/26/19 at 09:00 Carisoprodol (Soma) 350 mg Q12 PO Last administered on 03/31/19 08:45; Admin Dose 350 MG; Start 03/26/19 at 09:00 Isosorbide Dinitrate (Isordil) 10 mg TID PO Last administered on 03/31/19at 12:29; Admin Dose 10 MG; Start 03/26/19 at 09:00 Oxybutynin Chloride (Ditropan Xl) 10 mg DAILY PO Last administered on 03/31/19at 08:45; Admin Dose 10 MG; Start 03/26/19 at 09:00 Tramadol HCl (Ultram) 100 mg Q6H PRN PO PAIN LEVEL 1-3 Last administered on 03/30/19 12:48; Admin Dose 100 MG; Start 03/26/19 at 04:30 Pantoprazole (Protonix Tab) 40 mg DAILY@06 PO Last administered on 03/31/19 05:42; Admin Dose 40 MG; Start 03/26/19 at 06:00 Arformoterol Tartrate (Brovana (Neb)) 2 ml BID RESP THERAPY INH Last administered on 03/31/19 08:18; Admin Dose 2 ML; Start 03/26/19 at 20:00 Budesonide (Pulmicort (Neb)) 0.5 mg BID RESP THERAPY INH Last administered on 03/31/19 08:18; Admin Dose 0.5 MG; Start 03/26/19 at 20:00 Morphine Sulfate (morphine) 2 mg Q4H PRN IV SEVERE PAIN LEVEL 7-10 Last administered on 03/31/19 10:41; Admin Dose 2 MG; Start 03/26/19 at 12:30 Tiotropium Cades (Spiriva) 1 inh DAILY INH Last administered on 03/31/19 10:40; Admin Dose 1 INH; Start 03/26/19 at 13:30 Guaifenesin/ Dextromethorphan (Robitussin Dm Liquid Cup) 10 ml Q4H PRN PO cough Last administered on 03/31/19 10:40; Admin Dose 10 ML; Start 03/26/19 at 12:30 Azithromycin (Zithromax) 500 mg DAILY PO Last administered on 03/31/19 08:46; Admin Dose 500 MG; Start 03/27/19 at 12:30; Stop 04/01/19 at 12:29 Guaifenesin/ Dextromethorphan (Mucinex Dm) 1 tab BID PO Last administered on 03/31/19 08:45; Admin Dose 1 TAB; Start 03/27/19 at 13:00 Alprazolam (Xanax) 0.25 mg BID PRN PO anxiety Last administered on 03/31/19 00:57; Admin Dose 0.25 MG; Start 03/27/19 at 12:30 Trazodone HCl (Desyrel) 50 mg HS PO Last administered on 03/30/19 20:44; Admin Dose 50 MG; Start 03/27/19 at 21:00 Amoxicillin/ Clavulanate Potassium (Augmentin) 875 mg BID PO Last administered on 03/31/19 08:46; Admin Dose 875 MG; Start 03/27/19 at 13:00 Tramadol HCl (Ultram) 50 mg TID PRN PO shoulder pain Last administered on 03/29/19 09:10; Admin Dose 50 MG; Start 03/28/19 at 10:00 Docusate Sodium (Colace) 200 mg BID PO Last administered on 03/31/19 08:45; Admin Dose 200 MG; Start 03/28/19 at 10:30 Senna (Senokot) 2 tab BID PO Last administered on 03/31/19 08:46; Admin Dose 2 TAB; Start 03/28/19 at 21:00 Methylprednisolone Sodium Succinate (Solu-Medrol) 40 mg BID IV Last administered on 03/31/19 08:45; Admin Dose 40 MG; Start 03/29/19 at 21:00 Psyllium Hydrophilic Mucilloid (Metamucil) 1 pkt BID PO Last administered on 03/31/19 08:44; Admin Dose 1 PKT; Start 03/29/19 at 21:00 Sodium Biphosphate/ Sodium Phosphate (Fleet Enema) 133 ml DAILY PRN [place] CONSTIPATION; Start 03/29/19 at 12:00 Benzonatate (Tessalon) 100 mg TID PO Last administered on 03/31/19 12:28; Admin Dose 100 MG; Start 03/29/19 at 13:00 Insulin Human NPH (Humulin N) 10 unit BID SC Last administered on 03/30/19 20:41; Admin Dose 10 UNIT; Start 03/29/19 at 21:00 Magnesium Hydroxide (Milk Of Mag) 30 ml DAILY PRN PO CONSTIPATION Last administered on 03/31/19 13:18; Admin Dose 30 ML; Start 03/30/19 at 12:30 Lactulose (Enulose) 20 gm BID PO ; Start 03/31/19 at 13:30; Status UNV Allergies: Coded Allergies: No Known Allergy (Verified , 04/21/13) Social History Alcohol Use: none Smoking Status: Current every day smoker Drug Use: none Exam/Review of Systems Exam Vitals Vital Signs Date Temp Pulse Resp B/P (MAP) Pulse Ox O2 O2 Flow FiO2 Time Delivery Rate 03/31/19 79 22 94 Nasal 3.0 12:17 Cannula 03/31/19 97.5 141/67 07:59 (91) 03/27/19 21 07:48 Intake and Output 03/30/19 03/30/19 03/31/19 1515:00 23:00 07:00 IntakeIntake Total 840 ml 500 ml 700 ml OutputOutput Total 1200 ml BalanceBalance 840 ml 500 ml -500 ml Constitutional: alert, oriented Psych: no complaints Head: normocephalic Eyes: nl conjunctiva, EOMI ENMT: nl external ears & nose, nl lips & teeth Neck: supple, non-tender Respiratory: crackles/rales, other (Oxygen nasal cannula in place) Cardiovascular: regular rate and rhythm Gastrointestinal: soft, bowel sounds, other (obese, ventral hernia) Results Results 24hrs Laboratory Tests Test 03/30/19 17:38 03/30/19 20:25 03/31/19 07:59 03/31/19 12:02 Bedside Glucose 151 165 120 112 Medications Medication Current Medications IV Flush (NS 3 ml) 3 ml PER PROTOCOL IV ; Start 03/25/19 at 20:30 Ondansetron HCl (Zofran Inj) 4 mg Q6H PRN IV NAUSEA/VOMITING; Start 03/25/19 at 20:30 Acetaminophen (Tylenol Tab) 650 mg Q6H PRN PO .PAIN 1-3 OR TEMP Last administered on 03/26/19at 00:25; Admin Dose 650 MG; Start 03/25/19 at 20:30 Bisacodyl (Dulcolax) 5 mg DAILY PRN PO .CONSTIPATION Last administered on 03/31/19at 13:18; Admin Dose 5 MG; Start 03/25/19 at 20:30 Enoxaparin Sodium (Lovenox) 40 mg DAILY SC Last administered on 03/31/19at 08:48; Admin Dose 40 MG; Start 03/26/19 at 09:00 Albuterol/ Ipratropium (Duoneb) 3 ml Q4H RESP THERAPY HHN Last administered on 03/31/19at 12:16; Admin Dose 3 ML; Start 03/25/19 at 21:00 Gabapentin (Neurontin) 300 mg TID PO Last administered on 03/31/19at 12:27; Admin Dose 300 MG; Start 03/26/19 at 09:00 Nicotine (Nicoderm 14 Mg/ 24hr) 1 patch DAILY TRANSDERM Last administered on 03/31/19at 08:50; Admin Dose 1 PATCH; Start 03/26/19 at 09:00 Albuterol (Proventil 0.083% (Neb)) 2.5 mg Q2H RESP THERAPY PRN HHN SHORTNESS OF BREATH Last administered on 03/29/19 10:08; Admin Dose 2.5 MG; Start 03/25/19 at 23:30 Diagnostic Test (Pha) (Accu-Chek) 1 ea 02 XX ; Start 03/26/19 at 02:00 Insulin Aspart (Novolog Insulin Pen) NOVOLOG *MILD* ALGORITHM WITH MEALS BEDTIME SC Last administered on 03/30/19 17:46; Admin Dose 1 UNIT; Start 03/26/19 at 08:00 Miscellaneous Information 1 ea NOTE XX ; Start 03/25/19 at 23:30 Glucose (Glutose) 15 gm Q15M PRN PO DECREASED GLUCOSE; Start 03/25/19 at 23:30 Glucose (Glutose) 22.5 gm Q15M PRN PO DECREASED GLUCOSE; Start 03/25/19 at 23:30 Dextrose (D50w Syringe) 25 ml Q15M PRN IV DECREASED GLUCOSE; Start 03/25/19 at 23:30 Dextrose (D50w Syringe) 50 ml Q15M PRN IV DECREASED GLUCOSE; Start 03/25/19 at 23:30 Glucagon (Glucagen) 1 mg Q15M PRN IM DECREASED GLUCOSE; Start 03/25/19 at 23:30 Glucose (Glutose) 15 gm Q15M PRN BUCCAL DECREASED GLUCOSE; Start 03/25/19 at 23:30 Baclofen (Lioresal) 10 mg DAILY PO Last administered on 03/31/19 08:46; Admin Dose 10 MG; Start 03/26/19 at 09:00 Bupropion HCl (Wellbutrin Sr) 150 mg BID PO Last administered on 03/31/19 08:46; Admin Dose 150 MG; Start 03/26/19 at 09:00 Carisoprodol (Soma) 350 mg Q12 PO Last administered on 03/31/19 08:45; Admin Dose 350 MG; Start 03/26/19 at 09:00 Isosorbide Dinitrate (Isordil) 10 mg TID PO Last administered on 03/31/19 12:29; Admin Dose 10 MG; Start 03/26/19 at 09:00 Oxybutynin Chloride (Ditropan Xl) 10 mg DAILY PO Last administered on 03/31/19 08:45; Admin Dose 10 MG; Start 03/26/19 at 09:00 Tramadol HCl (Ultram) 100 mg Q6H PRN PO PAIN LEVEL 1-3 Last administered on 03/30/19 12:48; Admin Dose 100 MG; Start 03/26/19 at 04:30 Pantoprazole (Protonix Tab) 40 mg DAILY@06 PO Last administered on 03/31/19 05:42; Admin Dose 40 MG; Start 03/26/19 at 06:00 Arformoterol Tartrate (Brovana (Neb)) 2 ml BID RESP THERAPY INH Last administered on 03/31/19 08:18; Admin Dose 2 ML; Start 03/26/19 at 20:00 Budesonide (Pulmicort (Neb)) 0.5 mg BID RESP THERAPY INH Last administered on 03/31/19 08:18; Admin Dose 0.5 MG; Start 03/26/19 at 20:00 Morphine Sulfate (morphine) 2 mg Q4H PRN IV SEVERE PAIN LEVEL 7-10 Last administered on 03/31/19 10:41; Admin Dose 2 MG; Start 03/26/19 at 12:30 Tiotropium Cades (Spiriva) 1 inh DAILY INH Last administered on 03/31/19 10:40; Admin Dose 1 INH; Start 03/26/19 at 13:30 Guaifenesin/ Dextromethorphan (Robitussin Dm Liquid Cup) 10 ml Q4H PRN PO cough Last administered on 03/31/19 10:40; Admin Dose 10 ML; Start 03/26/19 at 12:30 Azithromycin (Zithromax) 500 mg DAILY PO Last administered on 03/31/19 08:46; Admin Dose 500 MG; Start 03/27/19 at 12:30; Stop 04/01/19 at 12:29 Guaifenesin/ Dextromethorphan (Mucinex Dm) 1 tab BID PO Last administered on 03/31/19 08:45; Admin Dose 1 TAB; Start 03/27/19 at 13:00 Alprazolam (Xanax) 0.25 mg BID PRN PO anxiety Last administered on 03/31/19 00:57; Admin Dose 0.25 MG; Start 03/27/19 at 12:30 Trazodone HCl (Desyrel) 50 mg HS PO Last administered on 03/30/19 20:44; Admin Dose 50 MG; Start 03/27/19 at 21:00 Amoxicillin/ Clavulanate Potassium (Augmentin) 875 mg BID PO Last administered on 03/31/19 08:46; Admin Dose 875 MG; Start 03/27/19 at 13:00 Tramadol HCl (Ultram) 50 mg TID PRN PO shoulder pain Last administered on 03/29/19 09:10; Admin Dose 50 MG; Start 03/28/19 at 10:00 Docusate Sodium (Colace) 200 mg BID PO Last administered on 03/31/19 08:45; Admin Dose 200 MG; Start 03/28/19 at 10:30 Senna (Senokot) 2 tab BID PO Last administered on 03/31/19 08:46; Admin Dose 2 TAB; Start 03/28/19 at 21:00 Methylprednisolone Sodium Succinate (Solu-Medrol) 40 mg BID IV Last administered on 03/31/19 08:45; Admin Dose 40 MG; Start 03/29/19 at 21:00 Psyllium Hydrophilic Mucilloid (Metamucil) 1 pkt BID PO Last administered on 03/31/19 08:44; Admin Dose 1 PKT; Start 03/29/19 at 21:00 Sodium Biphosphate/ Sodium Phosphate (Fleet Enema) 133 ml DAILY PRN [place] CONSTIPATION; Start 03/29/19 at 12:00 Benzonatate (Tessalon) 100 mg TID PO Last administered on 03/31/19 12:28; Admin Dose 100 MG; Start 03/29/19 at 13:00 Insulin Human NPH (Humulin N) 10 unit BID SC Last administered on 03/30/19 20:41; Admin Dose 10 UNIT; Start 03/29/19 at 21:00 Magnesium Hydroxide (Milk Of Mag) 30 ml DAILY PRN PO CONSTIPATION Last administered on 7/18/19at 13:18; Admin Dose 30 ML; Start 03/30/19 at 12:30 Lactulose (Enulose) 20 gm BID PO ; Start 03/31/19 at 13:30; Status MIGUELINA SPRAGUE Mar 31, 2019 13:35
[2019-03-31] MEDS: LACTULOSE 30ML CUP PO SCH ×2 (14:10→20:31)
[2019-03-31 14:58] VITALS: BP 130/64; PULSE 74; RESP 16
[2019-03-31 19:35] VITALS: BP 125/65; PULSE 80; RESP 18
[2019-03-31] MEDS: traZODone 50 MG TAB PO SCH (20:31)
[2019-03-31] MEDS: LUBIPROSTONE 24 MCG CAP PO SCH (20:32)
[2019-04-01] MEDS: ALBUTEROL/IPRATROPIUM (NEB) 3 ML AMP HHN SCH ×5 (00:31→16:37)
[2019-04-01] MEDS: ACCU-CHEK XX SCH (01:28)
[2019-04-01 01:56] VITALS: BP 118/62; PULSE 74; RESP 18
[2019-04-01 02:28] VITALS: BP 176/75; PULSE 77; RESP 16
[2019-04-01] MEDS: morphine 2 MG INJ IV PRN ×3 (02:32→16:01)
[2019-04-01] MEDS: PANTOPRAZOLE (EC) 40 MG TAB PO SCH (06:00)
[2019-04-01 07:57] VITALS: BP 117/59; PULSE 63; RESP 16
[2019-04-01] MEDS: INSULIN ASPART [NOVOLOG] 3 ML PEN SC SCH ×3 (08:00→17:47)
[2019-04-01] MEDS: LACTULOSE 30ML CUP PO SCH (09:00)
[2019-04-01] MEDS: PSYLLIUM 28% PACKET PO SCH (09:00)
[2019-04-01] MEDS: SENNA TAB PO SCH (09:00)
[2019-04-01] MEDS: METHYLPREDNISOLONE 40 MG INJ IV SCH (09:08)
[2019-04-01] MEDS: LUBIPROSTONE 24 MCG CAP PO SCH (09:08)
[2019-04-01] MEDS: DOCUSATE SODIUM 100 MG CAP PO SCH (09:08)
[2019-04-01] MEDS: GABAPENTIN 300 MG CAP PO SCH ×2 (09:09→12:18)
[2019-04-01] MEDS: BUPROPION (SR) 150 MG TAB PO SCH (09:09)
[2019-04-01] MEDS: AZITHROMYCIN 500 MG TAB PO SCH (09:09)
[2019-04-01] MEDS: BACLOFEN 10 MG TAB PO SCH (09:09)
[2019-04-01] MEDS: OXYBUTYNIN (XL) 5 MG TAB PO SCH (09:09)
[2019-04-01] MEDS: AMOXICILLIN/CLAV 875 MG TAB PO SCH (09:09)
[2019-04-01] MEDS: BENZONATATE 100 MG CAP PO SCH ×2 (09:09→12:18)
[2019-04-01] MEDS: GUAIFENESIN/DM (SR) TAB PO SCH (09:09)
[2019-04-01] MEDS: CARISOPRODOL 350 MG TAB PO SCH (09:09)
[2019-04-01] MEDS: ISOSORBIDE DINITRATE 10 MG TAB PO SCH ×2 (09:10→12:22)
[2019-04-01] MEDS: TIOTROPIUM 18 MCG CAPSULE INHA DEV INH SCH (09:10)
[2019-04-01] MEDS: NICOTINE (14 MG/24 HR) PATCH TRANSDERM SCH (09:11)
[2019-04-01] MEDS: ENOXAPARIN 40 MG/0.4 ML SYG SC SCH (09:15)
[2019-04-01] MEDS: NPH, HUMAN INSULIN ISOPHANE 3ML VIAL SC SCH (09:15)
[2019-04-01] MEDS: ARFORMOTEROL TARTRATE 15MCG/2 ML AMP INH SCH (09:17)
[2019-04-01] MEDS: BUDESONIDE (NEB) 0.5MG/2ML AMP INH SCH (09:25)
[2019-04-01] MEDS: ALPRAZOLAM 0.25 MG TAB PO PRN (10:36)
[2019-04-01 12:23] VITALS: BP 133/60; PULSE 73
--- NOTE | 2019-04-01 12:46 | PDOCDIS ---
Discharge Instructions CONDITION [id number] Patient Condition: [id number] Stable HOME CARE INSTRUCTIONS: [id number] Your diet recommendation is: Chaoy4y carbohydrate-controlled FOLLOW UP/APPOINTMENTS Follow-up Plan Follow up with DR. Dawkins, Alex Borden MD next week Specialty PULMONARY Medicine Comments Office Address [address] [place], [place] [id number] Office Follow up with primary care doctor in 1 week MAC MAY V. ASSISTANT FOOTBALL COACH Apr 01, 2019 12:46
[2019-04-01] MEDS ORDERED: traZODone PO (12:58)
[2019-04-01] MEDS ORDERED: DOCU-144 PO (12:58)
[2019-04-01] MEDS ORDERED: BROVANA INH (12:58)
[2019-04-01] MEDS ORDERED: FAMO-96 PO (12:58)
[2019-04-01] MEDS ORDERED: PRED10TA PO (12:58)
[2019-04-01] MEDS ORDERED: ALPR0.254 PO (12:58)
[2019-04-01] MEDS ORDERED: BUDE0.5A INH (12:58)
[2019-04-01] MEDS ORDERED: ALBU2.5V3 HHN (12:58)
[2019-04-01] MEDS ORDERED: TIOT18CA INH (12:58)
[2019-04-01] MEDS ORDERED: BENZ-5 PO (12:58)
[2019-04-01] MEDS ORDERED: LUBI24CA7 PO (12:58)
[2019-04-01] MEDS ORDERED: ADV25050 INH (12:58)
[2019-04-01] MEDS ORDERED: Guaifenesin/Dm (Sr) PO (12:58)
[2019-04-01] MEDS ORDERED: SENN-120 PO (12:58)
--- NOTE | 2019-04-01 13:02 | DS ---
Date/Time of Note Date/Time of Note DATE: 04/01/19 TIME: 13:02 Discharge Summary Admission/Discharge Info Admit Date/Time Mar 25, 2019 at 19:53 Discharge Date/Time Discharge Diagnosis COPD exacerbation Acute tracheobronchitis DM2 HTN Anxiety disorders Overactive bladder Tobacco abuse Chronic Back pain Obesity with a BMI 32.8 Constipation Chronic abdominal wall hernia Anxiety disorders Patient Condition: Stable Consults Procedures 03/26/2019 Chest Xray IMPRESSION: No evidence for active cardiopulmonary disease. Hospital Course x64 yo w/copd,current every day smoker,dm neuropathy,anxiety, chronic back pain, here w/cough/sob... We continued patient on [id number] Rosalind, Brovana nebulization and IV steroids. Patient is being followed by head chopper. Patient requires supplemental oxygen and home health and home oxygen was approved. Patient was also treated for acute tracheobronchitis with antibiotics with improvement in her symptoms. She was continued on insulin for underlying diabetes. Patient also needed anxiety medications. She was also noted with constipation for which she was being followed by cigarette carton sealer and responded with Amitiza. At this time, patient is feeling back to her baseline. She is stable from medical standpoint for discharge with outpatient pulmonary follow-up. On discharge, breathing treatments has been changed from inhalation to nebulization and was given with prescriptions. Patient already has a nebulizer at home. Approximately 60-minute was spent on coordinating the discharge on this patient. Patient was seen in collaboration with [facility] Active Scripts Famotidine* (Pepcid*) 20 Mg Tablet, 20 MG PO BID, #60 TAB Prov:MAC MAY V. FISH ICER 04/01/19 Prednisone* (Prednisone*) 10 Mg Tab, 10 MG PO DAILY, #19 TAB take 4 pills day 1 and day 2 Take 3 pills day 3 and day 4 Take 2 pills day 5 and day 6 Take 1 pill day 7 and day 8 Prov:MAC MAY V. FISH ICER 04/01/19 Sennosides* (Senna Lax*) 8.6 Mg Tablet, 2 TAB PO BID, #60 TAB Prov:MAYMAC SANDERS V. FISH ICER 04/01/19 Lubiprostone* (Amitiza*) 24 Mcg Capsule, 24 MCG PO BID, #60 CAP Prov:MAC MAY V. FISH ICER 04/01/19 Docusate Sodium* (Colace*) 100 Mg Capsule, 200 MG PO BID, #90 CAP Prov:MAC MAY Suha FISH ICER 04/01/19 [Guaifenesin/Dm (Sr)] 1 TAB TABSR No Conflict Check, 1 TAB PO BID, #60 TAB Prov:WILVER MYADYA Liv. FISH ICER 04/01/19 Budesonide* (Budesonide*) 0.5 Mg/2 Ml Ampul.neb, 0.5 MG INH BID RESP THERAPY, #60 DOSE Prov:WILVER MAYDYA V. FISH ICER 04/01/19 Benzonatate* (Benzonatate*) 100 Mg Capsule, 100 MG PO TID, #30 CAP Prov:MAYWILVERMACYUNG Borden FISH ICER 04/01/19 Tiotropium [place]* (Spiriva*) 18 Mcg Cap.w.dev, 1 INH INH DAILY, #1 INH Prov:MAYWILVERMACYUNG Borden FISH ICER 04/01/19 Albuterol Sulfate* (Albuterol Sulfate* Neb) 0.083%-3 Ml Neb, 2.5 MG HHN Q4H RESP THERAPY PRN for SHORTNESS OF BREATH, #100 DOSE take evry 4hrs for the next 1 week,then change to s needed Prov:WILVER MAYYUNG Borden FISH ICER 04/01/19 Arformoterol Tartrate* (Brovana* Neb) 2 Ml Nebu, 2 ML INH BID RESP THERAPY, #60 DOSE Prov:WILVER MAYDYA Liv. FISH ICER 04/01/19 Salmeterol Xinaf/Fluticasone* (Advair*) 250-50 Diskus Inhaler, 1 INH INH BID, #1 4 Refills you don not need to take this if approved for brovana and budoseide nebulization Prov:MAY,MACYUNG Borden FISH ICER 04/01/19 Docusate Sodium* (Colace*) 100 Mg Capsule, 100 MG PO TID, #30 CAP Prov:BIBI TRAMMELL S. 10/21/18 Isosorbide Dinitrate* (Isordil*) 10 Mg Tablet, 10 MG PO TID, #90 TAB 4 Refills Prov:ADRIANA ALCANTAR S. 08/05/16 Polyethylene Glycol* (Miralax*) 17 Gm Powd.pack, 17 GM PO DAILY, #30 Prov:STEPHANIE ALCANTARP S. 08/05/16 Phenazopyridine Hcl* (Phenazopyridine Hcl*) 100 Mg Tablet, 100 MG PO TID PRN for dysuria, #60 TAB Prov:STEPHANIE ALCANTARP S. 08/05/16 Tramadol HCl (Tramadol HCl) 50 Mg Tablet, 100 MG PO Q6H, #120 TAB Prov:CATHY ALCANTAREEP S. 08/05/16 Reported Medications Oxycodone Hcl* (Oxycontin*) 40 Mg Tab.er.12h, 40 MG PO Q8, TAB 03/26/19 Baclofen* (Baclofen*) 10 Mg Tablet, 10 MG PO DAILY, TAB 03/26/19 Carisoprodol* (Carisoprodol*) 350 Mg Tablet, 350 MG PO Q12, TAB 03/26/19 Gabapentin* (Neurontin*) 300 Mg Capsule, 300 MG PO TID for Neuropathy MDD 900mg , #90 CAP 03/25/19 Temazepam* (Temazepam*) 15 Mg Capsule, 15 MG PO HS PRN for INSOMNIA, CAP 03/25/19 Oxybutynin Chloride* (Ditropan* XL) 10 Mg Tab.er.24, 10 MG PO DAILY, TAB.SA 07/25/16 Bupropion Hcl* (Wellbutrin SR*) 150 Mg Tablet.sa, 150 MG PO BID, TAB.SA 07/25/16 Metformin Hcl (Metformin Hcl ER) 500 Mg Tab.er.24h, 500 MG PO DAILY, #30 TAB.SA 07/25/16 Discontinued Reported Medications Paroxetine Hcl* (Paxil*) 20 Mg Tablet, 20 MG PO DAILY, TAB 07/25/16 Modafinil* (Modafinil*) 200 Mg Tablet, 200 MG PO DAILY, TAB 07/25/16 Discontinued Scripts Benzonatate* (Benzonatate*) 100 Mg Capsule, 100 MG PO TID PRN for cough, #90 CAP Prov:STEPHANIE ALCANTARP S. 08/05/16 Benazepril Hcl* (Benazepril Hcl*) 10 Mg Tablet, 10 MG PO BID, #60 TAB 4 Refills Prov:ORTIZADRIANA S. 08/05/16 Carvedilol* (Carvedilol*) 6.25 Mg Tablet, 6.25 MG PO BID, #60 TAB 4 Refills Prov:ADRIANA ALCANTAR S. 08/05/16 Nicotine* (Nicotine* Patch) 7 mg/day Patch, 1 PATCH TRANSDERM DAILY, #30 2 Refills Prov:ADRIANA ALCANTAR S. 08/05/16 Tiotropium [place]* (Spiriva*) 18 Mcg Cap.w.dev, 1 INH INH DAILY, #1 3 Refills Prov:ADRIANA ALCANTAR S. 08/05/16 Follow-up Plan Follow up with DR. Dawkins, Alex Borden MD next week Specialty PULMONARY Medicine Comments Office Address [address] [place] [address] Office Follow up with primary care doctor in 1 week Primary Care Provider Not On Staff Doctor Pending Labs Laboratory Tests Test 03/31/19 17:16 03/31/19 20:18 04/01/19 07:58 04/01/19 12:04 Bedside 107 123 117 126 Glucose mg/dL (70-220) mg/dL (70-220) mg/dL (70-220) mg/dL (70-220) MAC MAY NP Apr 01, 2019 13:02
[2019-04-01 13:58] VITALS: BP 126/62; PULSE 85; RESP 16
[2019-04-01] MEDS ORDERED: AMOX1TAB10 PO (14:14)
--- NOTE | 2019-04-01 15:31 | CONS ---
DATE OF ADMISSION: 03/25/2019 DATE OF CONSULTATION: 04/01/2019 REASON FOR CONSULTATION: Shortness of breath. Thank you, Dr. Stratton, for this consultation. HISTORY OF PRESENT ILLNESS: This is a 64-year-old lady with extensive ongoing tobacco history, admit ximena with several-day history of increasing cough, shortness of breath, congestion, and hypoxemia, kristine saray on steroids, antibiotics, now with slowly improving bronchospasm. She states she continues to sm deni and has only successfully quit smoking once in the past. PAST MEDICAL HISTORY: As above. MEDICATIONS: Per chart. ALLERGIES: NONE. SOCIAL HISTORY: Positive tobacco history. Occasional alcohol, no history of drug abuse. FAMILY HISTORY: Noncontributory. SYSTEMS REVIEW: A 12-point review of systems was negative other than mentioned above. PHYSICAL EXAMINATION: GENERAL: Well-nourished, well-developed lady, comfortable at rest, no acute distress. VITAL SIGNS: Currently afebrile, pulse is 80, blood pressure 126/62, O2 saturation 96% on 2 L nasal cannula. NECK: Supple. No JVD. CARDIAC: S1, S2, no added sounds or murmurs. CHEST: Diminished air entry bilaterally. ABDOMEN: Soft, nontender. No guarding or rebound. EXTREMITIES: No clubbing, cyanosis or edema. NEUROLOGIC: Grossly intact. No focal deficits. LABORATORY DATA: ABG on admission pO2 was 52. White count is within normal limits. IMPRESSION AND PLAN: 1. Chronic obstructive pulmonary disease with acute exacerbation with hypoxemic respiratory failure. 2. Ongoing tobacco use. PLAN: 1. Discharge home with steroid taper, antibiotics, bronchodilators, outpatient followup with me. 2. Advised on smoking cessation. Dictated By: YAMILA BARRERA MD SV/ASA Conf#: [id number] DID#: [id number] CC: TOMÁS STRATTON MD;*EndCC*
== END 2019-04-01 18:30 | disposition home health service (06) | DRG 202 ==
LOC: FTE 17:06 → 2NE 19:53
PROVIDERS: ADMIT Family Medicine; ATTEND Family Medicine
DX: J20.9 Acute bronchitis, unspecified (principal); J44.1 Chronic obstructive pulmonary disease with (acute) exacerbation; J44.0 Chronic obstructive pulmonary disease with (acute) lower respiratory infection; J96.11 Chronic respiratory failure with hypoxia; E66.9 Obesity, unspecified; F17.200 Nicotine dependence, unspecified, uncomplicated; F17.210 Nicotine dependence, cigarettes, uncomplicated; F41.9 Anxiety disorder, unspecified; F32.9 Major depressive disorder, single episode, unspecified; G89.29 Other chronic pain; M54.9 Dorsalgia, unspecified; N32.81 Overactive bladder; E11.40 Type 2 diabetes mellitus with diabetic neuropathy, unspecified; I10 Essential (primary) hypertension; K43.9 Ventral hernia without obstruction or gangrene; K59.00 Constipation, unspecified; Z68.32 Body mass index [BMI] 32.0-32.9, adult; Z79.84 Long term (current) use of oral hypoglycemic drugs
CPT/HCPCS: 36600; 71045; 80053; 80061; 81003; 82803; 82962; 83036; 83605; 84436; 84443; 84479; 84484; 85025; 87086; 94640; 94664; J0456; J0696; J1650; J1815; J2270; J2920; J2930; J7030

== ENCOUNTER 2019-05-01 23:40 | Emergency (ER) | payer MEDICARE, OTHER ==
[~2019-05-01] VITALS: Ht 160 cm; Wt 69.5 kg
[~2019-05-01 23:40] MED LIST changes: +ALBU2.5V3 HHN; +ALPR0.254 PO; +AMOX1TAB10 PO; +BACL10TA PO; -BENA10TA4 PO; +BROVANA INH; +BUDE0.5A INH; +CARI350T29 PO; -CARV6.2579 PO; +FAMO-96 PO; +GABA300C PO; +Guaifenesin/Dm (Sr) PO; +HYDR-3980 PO; +IBUP-1542 PO; +LUBI24CA7 PO; -MODA200T35 PO; -NICO-544 TRANSDERM; -PARO-2 PO; +PRED10TA PO; +SENN-120 PO; +traZODone PO
[2019-05-01 23:49] VITALS: Ht 160 cm; Wt 69.5 kg
[2019-05-02 02:59] VITALS: BP 142/69; PULSE 90; RESP 22
== END 2019-05-02 03:16 | disposition home or self-care (01) ==
LOC: FTE 23:40
DX: S82.042A Displaced comminuted fracture of left patella, initial encounter for closed fracture (principal); J44.9 Chronic obstructive pulmonary disease, unspecified; I10 Essential (primary) hypertension; S09.90XA Unspecified injury of head, initial encounter; S49.91XA Unspecified injury of right shoulder and upper arm, initial encounter; S99.912A Unspecified injury of left ankle, initial encounter; S99.911A Unspecified injury of right ankle, initial encounter; F17.210 Nicotine dependence, cigarettes, uncomplicated; R51 Headache; W01.198A Fall on same level from slipping, tripping and stumbling with subsequent striking against other object, initial encounter; Y92.002 Bathroom of unspecified non-institutional (private) residence as the place of occurrence of the external cause; Z79.84 Long term (current) use of oral hypoglycemic drugs
CPT/HCPCS: 70450; 73030